=== PATIENT | male | born 1960 | race Caucasian/White ===

== ENCOUNTER → 2017-11-20 11:37 | Outpatient (CLI) | payer OTHER, MEDICARE, SELFPAY ==
--- NOTE | 2017-11-20 11:45 | XR_ITS ---
XR knee RT 4V HISTORY: ITS.REASON: Right knee pain and popping sensation ORDERING PHYSICIAN: Foster Deleon MD PATIENT AGE: 57 years COMPARISON: 01/05/2015 FINDINGS: Weightbearing views are performed. There is normal alignment. No fracture or dislocation evident. The joint spaces are well-preserved. There is mild lateral subluxation of the patella and there is increased density in the suprapatellar region consistent with knee joint effusion. IMPRESSION: Knee joint effusion with mild lateral subluxation of the patella
== END ==
PROVIDERS: PCP Family Medicine; Visit Provider Orthopaedic Surgery
DX: M25.561 Pain in right knee (principal)
CPT/HCPCS: 73564

== ENCOUNTER → 2018-04-22 13:53 | Outpatient (CLI) | payer OTHER, MEDICARE, SELFPAY ==
--- NOTE | 2018-04-22 13:59 | XR_ITS ---
XR knee LT 4V HISTORY: ITS.REASON: LEFT KNEE PAIN ORDERING PHYSICIAN: Foster Deleon MD PATIENT AGE: 58 years COMPARISON: Left knee 02/17/2009 FINDINGS: There is mild joint space narrowing medially. The tibial spines appear normal. The patella is intact and is no effusion. Is no fracture or loose body seen. The soft tissues are normal. IMPRESSION: Minor degenerative change involving medial joint space
== END ==
PROVIDERS: PCP Family Medicine; Visit Provider Orthopaedic Surgery
DX: M25.562 Pain in left knee (principal)
CPT/HCPCS: 73564

== ENCOUNTER → 2018-06-15 10:58 | Outpatient (CLI) | payer OTHER, MEDICARE, SELFPAY ==
--- NOTE | 2018-06-15 10:59 | FL_ITS ---
FL upper GI w air HISTORY: ITS.REASON: dysphasia ORDERING PHYSICIAN: Cj Quintana MD PATIENT AGE: 58 years Comparison: None Fluoroscopy time: Fluoroscopy time: 1 minute and 55 seconds FINDINGS: There is a small sliding hiatal hernia with nonconstricting Schatzki's ring. The remainder of the esophagus has an unremarkable appearance. The stomach and duodenum have an unremarkable appearance. No mass or ulcer is evident. IMPRESSION: Small sliding hiatal hernia with a nonconstricting chest injury otherwise negative
== END ==
PROVIDERS: Family Provider Family Medicine; PCP Family Medicine; Visit Provider Surgery
DX: R13.10 Dysphagia, unspecified (principal)
CPT/HCPCS: 74247

== ENCOUNTER → 2018-07-21 15:34 | Outpatient (CLI) | payer OTHER, MEDICARE, SELFPAY ==
--- NOTE | 2018-07-21 15:48 | XR_ITS ---
XR forearm LT 2V HISTORY: Posttraumatic pain ORDERING PHYSICIAN: Foster Deleon MD PATIENT AGE: 58 years COMPARISON: None FINDINGS: No obvious fracture, dislocation, lytic change or blastic change. Normal mineralization. Unremarkable soft tissues IMPRESSION: Negative forearm
--- NOTE | 2018-07-21 15:48 | XR_ITS ---
XR elbow LT min 3V HISTORY: Posttraumatic pain ORDERING PHYSICIAN: Foster Deleon MD PATIENT AGE: 58 years COMPARISON: None FINDINGS: No obvious fracture is apparent. Soft tissue swelling is present along the olecranon region. There is an anterior fat pad noted. These can sometimes be seen as normal variants. No displaced fat pad evident posteriorly. IMPRESSION: 1. No definite fracture. 2. Soft tissue swelling at the olecranon. 3. Anterior fat pad nonspecific. If pain persists, consider follow-up exam in 7-10 days
== END ==
PROVIDERS: PCP Family Medicine; Visit Provider Orthopaedic Surgery
DX: M25.522 Pain in left elbow (principal)
CPT/HCPCS: 73080; 73090

== ENCOUNTER → 2018-07-23 14:09 | Outpatient (CLI) | payer OTHER, MEDICARE, SELFPAY ==
--- NOTE | 2018-07-23 14:13 | XR_ITS ---
XR elbow LT min 3V HISTORY: ITS.REASON: LT ELBOW PAIN , INJURY ORDERING PHYSICIAN: SHANE Mckeon PATIENT AGE: 58 years COMPARISON: 07/21/2018 FINDINGS: Posterior soft tissue swelling at the olecranon has shown improvement. There does remain a small anterior fat pad which could be a variation of normal. No posterior fat pad evident. No obvious fracture apparent IMPRESSION: Decreasing soft tissue swelling posteriorly. No definite fracture apparent
== END ==
PROVIDERS: PCP Physician Assistant; Visit Provider Physician Assistant
DX: M25.522 Pain in left elbow (principal)
CPT/HCPCS: 73080

== ENCOUNTER → 2018-07-29 09:06 | Outpatient (CLI) | payer OTHER, MEDICARE, SELFPAY ==
--- NOTE | 2018-07-29 09:11 | XR_ITS ---
XR elbow LT min 3V HISTORY: Injury with pain follow-up ITS.REASON: FU , LT ELBOW PAIN ORDERING PHYSICIAN: SHANE Mckeon PATIENT AGE: 58 years COMPARISON: 07/23/2018 FINDINGS: The remaining soft tissue swelling at the olecranon suggesting olecranon bursitis. There is a small anterior fat pad once again noted which may be a variation of normal. No displaced posterior fat pad evident. No acute fracture or dislocation. IMPRESSION: As above, no acute fracture. Possible olecranon bursitis
== END ==
PROVIDERS: PCP Family Medicine; Visit Provider Physician Assistant
DX: M25.522 Pain in left elbow (principal)
CPT/HCPCS: 73080

== ENCOUNTER → 2018-09-01 08:22 | Outpatient (CLI) | payer OTHER, MEDICARE, SELFPAY ==
--- NOTE | 2018-09-01 08:26 | XR_ITS ---
XR knee LT 4V HISTORY: Stabbing pain in left knee ITS.REASON: weightbearing ORDERING PHYSICIAN: Natalie De Los Santos MD PATIENT AGE: 58 years COMPARISON: None FINDINGS: Weight-bearing views are performed. No fracture or dislocation. No lytic or blastic change. Normal mineralization. No significant arthritic changes evident. Minimal vascular calcification is present No other significant findings IMPRESSION: Negative Knee Atherosclerotic changes
== END ==
PROVIDERS: PCP Family Medicine; Visit Provider Orthopaedic Surgery
DX: M25.562 Pain in left knee (principal)
CPT/HCPCS: 73564

== ENCOUNTER → 2018-10-29 10:38 | Outpatient (CLI) | payer OTHER, MEDICARE, SELFPAY ==
--- NOTE | 2018-10-29 10:41 | XR_ITS ---
XR ankle wt bearing LT min 3V HISTORY: Pain following injury ITS.REASON: Ankle pain ORDERING PHYSICIAN: Natalie De Los Santos MD PATIENT AGE: 58 years Comparison: None FINDINGS: No fracture or dislocation. No lytic or blastic change. There is normal mineralization.. The joint spaces are well-preserved. No significant degenerative/arthritic changes. No erosive changes evident. There is soft tissue swelling overlying the lateral malleolus. IMPRESSION: Soft tissue swelling otherwise negative
--- NOTE | 2018-10-29 11:13 | XR_ITS ---
XR tibia fibula LT 2V CLINICAL INDICATION: Pain following injury ITS.REASON: Lt leg injury ORDERING PHYSICIAN: Natalie De Los Santos MD PATIENT AGE: 58 years Comparison: None FINDINGS: No fracture dislocation or other significant anomalies IMPRESSION: No acute finding
== END ==
PROVIDERS: PCP Family Medicine; Visit Provider Orthopaedic Surgery
DX: S99.912A Unspecified injury of left ankle, initial encounter (principal); M79.605 Pain in left leg
CPT/HCPCS: 73590; 73610

== ENCOUNTER 2018-11-10 08:30 | Outpatient (RCR) | payer OTHER, MEDICARE, SELFPAY ==
--- NOTE | 2018-11-02 08:48 | HMH.PTOPEV ---
PT Outpatient Evaluation Rehab PT Outpatient Evaluation Start: 10/29/18 13:59 Freq: Status: Active Protocol: Document 11/02/18 08:31 AUGUSTOEDWARDO (Rec: 11/02/18 08:47 AUGUSTOEDWARDO [id number]) Electronically Signed By Jason Tenorio, PT 11/02/18 08:31 Outpatient Therapy Subjective History Subjective History This is the initial Physical Therapy evaluation for Foster Mendiola. Pt is a 58 y/o male referred to PT s/p fall w/ hyperflexion ankle injury. Pt reprots he was on a ladder trying to clean a simpson covered in ice. Pt reports ladder began to slide and he started to fall. Pt reprots his ankle got got between rungs and caused an inversion w/ hyper dorsiflexion injury. Pt reports x-ray negative for fx. Chief Complaint Pain Stiff Swelling Symptom Type Ache Throb Symptoms Relieved By Rest/Positioning Ice Elevation Symptoms Aggravated By Standing Physical Activity Walking Prior Functional Limitations None Current Functional Limitations Standing Squatting Recreation Activity Walking Stairs Symptom Description Intermittent Level of pain today (0-10) 2 Pain scale - at its best (0-10) 0 Pain scale - at its worst (0-10) 7 Ankle/Foot Eval Gait Observation General Gait Pattern Observation Antalgic Gait Palpation Tenderness left Ankle/Foot Palpation Findings Tenderness Ankle/Foot Palpation Overall Comment TTP along Ant. T/C jt and DF tendons ATF TTP positive Deltoid ligament TTP positive ROM Ankle/Foot Dorsiflexion w/Knee Extended -5 from neutral Active Range Motion (degrees) Ankle/Foot Dorsiflexion w/Knee Extended 5 Passive Range (degrees) Special Tests Ankle Anterior Drawer Test Negative Left Ankle Eversion Test Negative Left Talar Tilt Test Negative Left Ankle Inversion (supination) Test Positive Left Foot/Heel Tap/Percussion Test Negative Left Outpatient Therapy Assessment Impairments Problems/Impairmments Palpation Tenderness
== END 2018-11-10 08:35 | disposition home or self-care (01) ==
LOC: PT 08:30
PROVIDERS: Visit Provider Orthopaedic Surgery
DX: S99.912A Unspecified injury of left ankle, initial encounter (principal)
CPT/HCPCS: 97110; 97163; 97760

== ENCOUNTER → 2019-03-26 10:52 | Outpatient (CLI) | payer OTHER, MEDICARE, SELFPAY ==
--- NOTE | 2019-03-26 11:05 | US_ITS ---
US Testicular Ordering Physician: SHANE Mckeon Patient Age: 58 years: Male HISTORY: ITS.REASON: EDIDIDYMITIS Right testicular pain. No recent injury or fever previous TECHNIQUE: COMPARISON :October 2013 testicle ultrasound FINDINGS Finding suggest bilateral chronic epididymitis with bilateral spermatocele. RIGHT HEMISCROTUM Right Testicle itself with Normal size. Normal color Doppler flow. No testicular mass lesion. No evidence of torsion. Right testicle: 2.4 x 1.6 cm x 3.3 cm. There is however a prominent enlarged epididymis head on right. The Head of right epididymis measures 1.8 x 1.45 cm. Also suggestion of a 9 mm x 5 mm spermatocele at the head of epididymis The body of epididymis is enlarged thickened and quite prominent as it wrapping along the margin of the right testicle. It has heterogeneous hyperechoic component adjacent to the testicle, with a a tubular debris-filled hypoechoic tubular structure possibly reflecting dilated vas deferens overlying this... This debris-filled tubular structure measuring generally 5 mm diameter throughout, possibly up to 5 x 8 mm diameter more superiorly, where it approaches the head of the epididymis. Again I believe these collection of findings findings reflect chronic epididymitis with sequela. Correlation required. Urology follow-up suggested LEFT HEMISCROTUM Left testicle 2.3 x 4.7 x 3.6 cm.. Left testicle appears normal with no testicular mass. Normal color Doppler flow, Enlarged head of epididymis on the left measures up to 1.5 x 1.4 cm. Spermatoceles are seen at the head of left epididymis. The largest bilobed from hydrocele spans nearly 1.6 x 0.7 cm. These same spermatoceles were seen on the previous 2013 testicular ultrasound Also note smaller spermatocele measuring less than 1 cm an at d head of epididymis is well Again we see a thickened enlarged body of epididymis, which wrapping along the left testicle. Most Hyperechoic heterogeneous thickened component epididymis adjacent to the testicle. Again with somewhat similar debris-filled tubular structure, probable reflecting dilated vas deferens more superficially overlying the epididymis and continuing superiorly on left. IMPRESSION:... 1. Findings compatible with bilateral Chronic Epididymitis.. With Bilateral spermatoceles The right epididymis head & body enlarged, and most prominent. The hyperechoic enlarged body epididymis wraps along the right testicle with what may be a dilated debris-filled vas deferens overlying The left epididymis head and body are enlarged but less pronounced vs right. . Multiple spermatoceles at head of left epididymis again noted. (Note The larger bilobed spermatocele measuring over measuring up 1.6 cm 10.7 cm was present on 2014 ultrasound) 2.... Both right and left Testicle themselves appear otherwise normal. Normal echogenicity. No mass. Normal color Doppler flow.
== END ==
PROVIDERS: PCP Physician Assistant; Visit Provider Physician Assistant
DX: N45.1 Epididymitis (principal)
CPT/HCPCS: 76870

== ENCOUNTER → 2019-06-21 06:40 | Outpatient (CLI) | payer OTHER, MEDICARE, SELFPAY ==
[2019-06-21 07:55] LABS: Basophils % 0.5 % (0.1-2.0); Eosinophils # 0.2 K/mm3 (0.0-0.4); Eosinophils % 2.8 % (0.1-12.0); Hematocrit 47.5 % (42.0-52.0); Hemoglobin 15.8 g/dL (14.1-18.0); Mean Corpuscular HGB Conc 33.1 g/dL (31.8-35.4); Mean Corpuscular Hemoglobin 32.1 pg (27.0-31.2); Mean Platelet Volume 7.2 fl (7.4-10.4); Monocytes # 0.5 K/mm3 (0.1-1.0); Monocytes % 8.5 % (1.7-9.3); Neutrophils # 3.4 K/mm3 (1.8-7.8); Neutrophils % 56.1 % (37.0-80.0); Platelet Count 248 K/mm3 (142-424); Red Cell Distribution Width 13.6 % (11.5-17.5); White Blood Count 6.1 K/mm3 (4.8-10.8)
[2019-06-21 10:54] LABS: Alanine Aminotransferase 47 U/L (12-78); Albumin Level 3.4 gm/dL (3.4-5.0); Albumin/Globulin Ratio 1.1 (1.1-1.8); Alkaline Phosphatase 47 U/L (46-116); Anion Gap 16.5 mEq/L (5-15); Aspartate Amino Transferase 27 U/L (15-37); Bilirubin,Total 0.3 mg/dL (0.2-1.0); Blood Urea Nitrogen 6 mg/dL (7-18); Calcium 8.7 mg/dL (8.5-10.1); Carbon Dioxide 25 mmol/L (21.0-32.0); Chloride 104 mmol/L (98-107); Chol/HDL Ratio 4.9 (1-3.5); Cholesterol 182 mg/dL (140-200); Creatinine,Serum 0.65 mg/dL (0.70-1.30); Estimated Glomerular Filt Rate 126 ml/min (>60); GFR (African American) 153 ML/MIN (>60); Globulin 3.2 gm/dl (1.3-3.2); Glucose 90 mg/dL (74-106); HDL Cholesterol 37 mg/dL (27-67); LDL Cholesterol 74 mg/dL (0-130); Potassium 4.5 mmoL/L (3.5-5.1); Sodium 141 mmol/L (136-145); Total Protein,Serum 6.6 gm/dL (6.4-8.2); Triglycerides 357 mg/dL (30-200); VLDL Cholesterol 71 mg/dL (0-40)
[2019-06-21 14:11] LABS: Hemoglobin A1C 5.6 % (0.0-7.0)
[2019-06-22 10:10] LABS: Vitamin B12 211 pg/mL (232-1245)
== END ==
PROVIDERS: PCP Family Medicine; Visit Provider Physician Assistant
DX: R20.2 Paresthesia of skin (principal); Z13.1 Encounter for screening for diabetes mellitus; Z13.220 Encounter for screening for lipoid disorders
CPT/HCPCS: 36415; 80053; 80061; 82607; 83036; 84443; 85025

== ENCOUNTER → 2019-07-08 10:17 | Outpatient (CLI) | payer OTHER, MEDICARE, SELFPAY ==
--- NOTE | 2019-07-08 10:28 | CT_ITS ---
PROCEDURE: CT HEAD/BRAIN WO CON CLINICAL INDICATION: INJURY OF HEAD COMPARISON: No exams were available for comparison TECHNIQUE: Axial images obtained with sagittal and coronal reformats. All CT scans at the facility use one or more dose reduction, viz: automated exposure control, ma/kV adjustment per patient size (including targeted exams where dose is matched to indication, i.e. head), or iterative reconstruction technique. FINDINGS: No midline shift, mass effect, intracranial hemorrhage, hydrocephalus, or extra-axial fluid collection is evident. The calvarium has an unremarkable appearance. No mastoid effusion. No sinus air-fluid level. IMPRESSION: No acute intracranial finding Dictated by: Kj Nance 07/08/2019 10:57 Electronically signed by Kj Nance in [place] 07/08/2019 10:57
== END ==
PROVIDERS: PCP Physician Assistant; Visit Provider Physician Assistant
DX: S09.90XD Unspecified injury of head, subsequent encounter (principal)
CPT/HCPCS: 70450

== ENCOUNTER → 2019-07-12 10:44 | Outpatient (CLI) | payer OTHER, MEDICARE, SELFPAY ==
--- NOTE | 2019-07-12 10:46 | MR_ITS ---
PROCEDURE: MR HEAD/BRAIN WO/W CON CLINICAL INDICATION: INJURY OF HEAD, SUBSEQUENT ENCOUNTER Dizziness, headache COMPARISON: CT HEAD/BRAIN WO CON from 07/08/2019 TECHNIQUE: Routine multiplanar multi echo sequences are performed without and with gadolinium enhancement. FINDINGS: No midline shift or mass effect is evident. No evidence of acute infarction. No enhancing lesions are evident. No acute intracranial hemorrhage. There are scattered periventricular and subcortical T2 white matter hyperintensities. These are nonspecific. The cerebellopontine angle, cerebellum, and brainstem are unremarkable. No mastoid effusion or sinus air-fluid level. A retention cyst is present in the floor the right maxillary sinus. The globes have an unremarkable appearance. The pituitary, optic chiasm and craniocervical junction has an unremarkable appearance. There is some focal thinning in the posterior aspect of the corpus callosum nonspecific IMPRESSION: 1. No acute intracranial findings. 2. Scattered periventricular and subcortical T2 white matter hyperintensities. These are nonspecific and may be due to ischemic gliotic change from microvascular disease. Migraine headache would be an additional consideration. Demyelinating process not totally excluded but felt to be less likely due to the appearance. Dictated by: Cali Shanks MD 07/14/2019 08:58 Electronically signed by Cali Shanks MD in [place] 07/14/2019 08:58
== END ==
PROVIDERS: PCP Physician Assistant; Visit Provider Physician Assistant
DX: S09.90XD Unspecified injury of head, subsequent encounter (principal)
CPT/HCPCS: 70553; A9576

== ENCOUNTER → 2019-10-26 08:28 | Outpatient (CLI) | payer OTHER, MEDICARE, SELFPAY ==
--- NOTE | 2019-10-26 08:36 | XR_ITS ---
PROCEDURE: XR KNEE LT 4V CLINICAL INDICATION: left knee pain He feels like pins and needles for 4 months COMPARISON: [id number] KNEE-4 OR 5 VIEWS-RT from 01/05/2015 [id number] XR knee RT 4V from 11/20/2017 [id number] XR knee LT 4V from 04/22/2018 [id number] XR knee LT 4V from 09/01/2018 FINDINGS: No fracture or dislocation. No lytic or blastic change. There is normal mineralization. The joint spaces are well-preserved. No significant degenerative/arthritic changes. No erosive changes evident. Other findings:Atherosclerotic vascular calcifications are incidentally noted. A tiny suprapatellar joint effusion is suggested. IMPRESSION: No acute findings. Suspect a small suprapatellar joint effusion. Atherosclerosis. Dictated by: Harris Aviles 10/26/2019 09:29 Electronically signed by Harris Aviles in [place] 10/26/2019 09:29
== END ==
PROVIDERS: PCP Physician Assistant; Visit Provider Orthopaedic Surgery
DX: M25.562 Pain in left knee (principal)
CPT/HCPCS: 73564

== ENCOUNTER → 2019-10-29 15:19 | Outpatient (CLI) | payer OTHER, MEDICARE, SELFPAY ==
--- NOTE | 2019-10-29 15:19 | MR_ITS ---
PROCEDURE: MR KNEE LT WO CON CLINICAL INDICATION: evaluate for meniscal tear COMPARISON: No exams were available for comparison TECHNIQUE: Routine multiplanar multisequence exam was performed. FINDINGS: There is normal bone marrow signal. There is grade 2 signal in the posterior horn of the medial meniscus compatible with degeneration. There is no convincing evidence of a meniscal tear. A small amount of fluid in the joint space is felt to be within physiological normal limits. Anterior and posterior cruciate ligaments, and patellar tendon, and medial and lateral collateral ligament complexes appear intact. There is some signal abnormality within the caudad fibers of the quadriceps tendon over an approximately 2.6 centimeter segment extending from the patellar attachment site consistent with tendinosis and/or partial substance tearing. There is associated signal abnormality in the adjacent soft tissues posterior to the tendon and superior to the patella consistent with peritendinitis. There is no complete disruption of the quadriceps tendon. IMPRESSION: Tendinosis/partial substance tearing of quadriceps tendon with associated inflammation/edema of the adjacent soft tissues. No other evidence of significant internal derangement and no convincing evidence of meniscal tear. Dictated by: Harris Aviles 10/30/2019 10:53 Electronically signed by Harris Aviles in [place] 10/30/2019 10:53
== END ==
PROVIDERS: PCP Physician Assistant; Visit Provider Orthopaedic Surgery
DX: M25.562 Pain in left knee (principal)
CPT/HCPCS: 73721

== ENCOUNTER → 2020-01-19 09:27 | Outpatient (CLI) | payer OTHER, MEDICARE, SELFPAY ==
--- NOTE | 2020-01-19 09:33 | XR_ITS ---
PROCEDURE: XR MULTIPLE SPINE 6+V CLINICAL INDICATION: MIDLINE BACK PAIN Posttraumatic pain, mid and low back pain COMPARISON: No exams were available for comparison FINDINGS: Thoracic spine: Three views: Minimal upper thoracic curvature convex right with mild multilevel degenerative disc disease and endplate hypertrophic change. No acute fracture. Lumbar spine: Five views, no acute fracture or dislocation. There is degenerative disc disease at L5-S1, T12-L1, L1-L2 small anterior osteophytes are present at multiple levels and there is a small area of sclerosis along the superior endplate L4 on the right and at the inferior aspect of the L4 vertebral body. IMPRESSION: 1. No acute fracture. 2. Degenerative changes as described above Dictated by: Cali Shanks MD 01/19/2020 11:08 Electronically signed by Cali Shanks MD in [place] 01/19/2020 11:08
== END ==
PROVIDERS: PCP Physician Assistant; Visit Provider Physician Assistant
DX: M54.6 Pain in thoracic spine (principal); M54.5 Low back pain
CPT/HCPCS: 72084

== ENCOUNTER → 2020-03-16 15:07 | Outpatient (CLI) | payer OTHER, MEDICARE, SELFPAY ==
--- NOTE | 2020-03-16 15:13 | XR_ITS ---
PROCEDURE: XR WRIST RT MIN 3V CLINICAL INDICATION: Pain and swelling COMPARISON: No exams were available for comparison FINDINGS: No fracture or dislocation. No lytic or blastic change. There is normal mineralization. The joint spaces are well-preserved. No significant degenerative/arthritic changes. No erosive changes evident. Other findings:None. IMPRESSION: No acute findings. Dictated by: Cali Shanks MD 03/16/2020 15:36 Electronically signed by Cali Shanks MD in [place] 03/16/2020 15:36
== END ==
PROVIDERS: PCP Physician Assistant; Visit Provider Physician Assistant
DX: M25.431 Effusion, right wrist (principal); M79.89 Other specified soft tissue disorders
CPT/HCPCS: 73110

== ENCOUNTER → 2020-04-12 10:10 | Outpatient (CLI) | payer OTHER, MEDICARE, SELFPAY ==
--- NOTE | 2020-04-12 10:23 | XR_ITS ---
PROCEDURE: XR KNEE RT 3V CLINICAL INDICATION: ACUTE PAIN OF R KNEE COMPARISON: No exams were available for comparison FINDINGS: No fracture or dislocation. No lytic or blastic change. There is normal mineralization. The joint spaces are well-preserved. No significant degenerative/arthritic changes. No erosive changes evident. Other findings:There is generalized vascular calcification. Increased soft tissue density is present in the suprapatellar region consistent with knee joint effusion IMPRESSION: Knee joint effusion Dictated by: Cali Shanks MD 04/12/2020 14:48 Electronically signed by Cali Shanks MD in [place] 04/12/2020 14:48
== END ==
PROVIDERS: PCP Physician Assistant; Visit Provider Physician Assistant
DX: M25.561 Pain in right knee (principal)
CPT/HCPCS: 73562

== ENCOUNTER → 2020-04-21 09:59 | Outpatient (CLI) | payer OTHER, MEDICARE, SELFPAY ==
--- NOTE | 2020-04-21 10:01 | XR_ITS ---
PROCEDURE: XR KNEE RT 4V CLINICAL INDICATION: Rt knee pain COMPARISON: XR KNEE RT 3V from 04/12/2020 FINDINGS: No fracture or dislocation. No lytic or blastic change. There is normal mineralization. The joint spaces are well-preserved. No significant degenerative/arthritic changes. There is minor spurring of the superior border of the patella. No erosive changes evident. There has been interval decrease in size of the small effusion within the suprapatellar bursa. Other findings:None. IMPRESSION: Resolving knee effusion, no acute fracture seen Dictated by: Dr. Abhi Kendrick MD 04/21/2020 10:[address] Abhi Kendrick MD in [place] 04/21/2020 10:32
[2020-04-22 13:05] LABS: Covid-19 Nasal PCR Sendout Lex Not Detected
== END ==
PROVIDERS: PCP Physician Assistant; Visit Provider Orthopaedic Surgery
DX: Z03.818 Encounter for observation for suspected exposure to other biological agents ruled out (principal); Z11.59 Encounter for screening for other viral diseases; M25.561 Pain in right knee
CPT/HCPCS: 73564; U0004

== ENCOUNTER → 2020-05-01 07:49 | Outpatient (CLI) | payer OTHER, MEDICARE, SELFPAY ==
--- NOTE | 2020-05-01 08:02 | MR_ITS ---
PROCEDURE: MR KNEE RT WO CON CLINICAL INDICATION: knee pain Knee pain and swelling, instability COMPARISON: 04/21/2020 TECHNIQUE: Routine multiplanar multi echo sequences are performed without gadolinium enhancement. FINDINGS: The cruciate ligaments, collateral ligaments, the elbow tendon, and quadriceps tendon appear intact. Suspect tendinopathy/tendinosis of the distal aspect of the quadriceps tendon. No obvious meniscal tear. There is small knee joint effusion. No bone bruise or fracture. IMPRESSION: Small knee joint effusion otherwise negative Dictated by: Cali Shanks MD 05/03/2020 07:53 Electronically signed by Cali Shanks MD in [place] 05/03/2020 07:53
== END ==
PROVIDERS: PCP Physician Assistant; Visit Provider Orthopaedic Surgery
DX: M25.569 Pain in unspecified knee (principal)
CPT/HCPCS: 73721

== ENCOUNTER → 2020-07-19 08:21 | Outpatient (CLI) | payer OTHER, MEDICARE, SELFPAY ==
--- NOTE | 2020-07-19 08:29 | XR_ITS ---
PROCEDURE: XR HAND RT MIN 3V CLINICAL INDICATION: right hand pain COMPARISON: No exams were available for comparison FINDINGS: No obvious fracture or dislocation. There is a small area of exostosis involving the proximal and ulnar aspect of the proximal phalanx of the 3rd finger. Lucency is present along the cortical margin of the distal and radial aspect of the middle phalanx of the 3rd finger raising the suspicion of an underlying erosion. IMPRESSION: 1. Questionable erosive change along the distal and radial aspect of the middle phalanx of the 3rd digit. Finger films may confirm. 2. Minimal exostosis along the proximal and ulnar aspect of the proximal phalanx of the 3rd digit Dictated by: Cali Shanks MD 07/19/2020 08:51 Cali Shanks MD in [place] 07/19/2020 08:51
== END ==
PROVIDERS: PCP Family Medicine; Visit Provider Orthopaedic Surgery
DX: M79.641 Pain in right hand (principal)
CPT/HCPCS: 73130

== ENCOUNTER → 2021-01-22 09:53 | Outpatient (CLI) | payer OTHER, MEDICARE, SELFPAY ==
[2021-01-22 11:10] LABS: Basophils # 0.1 K/mm3 (0-0.2); Basophils % 0.7 % (0.1-2.0); Eosinophils # 0.1 K/mm3 (0.0-0.4); Eosinophils % 1.7 % (0.1-12.0); Hematocrit 46.5 % (42.0-52.0); Hemoglobin 16.3 g/dL (14.1-18.0); Lymphocytes # 2.1 K/mm3 (0.7-4.5); Lymphocytes % 25.3 % (10-50); Mean Corpuscular HGB Conc 35.1 g/dL (31.8-35.4); Mean Corpuscular Hemoglobin 32.8 pg (27.0-31.2); Mean Corpuscular Volume 93.6 fl (80-94); Mean Platelet Volume 8.5 fl (7.4-10.4); Monocytes # 0.5 K/mm3 (0.1-1.0); Monocytes % 6.1 % (1.7-9.3); Neutrophils # 5.5 K/mm3 (1.8-7.8); Neutrophils % 66.3 % (37.0-80.0); Platelet Count 234 K/mm3 (142-424); Red Blood Count 4.97 M/mm3 (4.60-6.20); Red Cell Distribution Width 13.6 % (11.5-17.5); White Blood Count 8.2 K/mm3 (4.8-10.8)
[2021-01-22 11:51] LABS: Alanine Aminotransferase 24 U/L (12-78); Albumin Level 4.4 g/dl (3.5-5.0); Albumin/Globulin Ratio 1.6 (1.1-1.8); Alkaline Phosphatase 67 U/L (38-126); Anion Gap 15.9 mEq/L (5-15); Aspartate Amino Transferase 28 U/L (17-59); Bilirubin,Total 0.6 mg/dl (0.2-1.3); Blood Urea Nitrogen 9 mg/dl (9-20); Calcium 9.4 mg/dl (8.4-10.2); Carbon Dioxide 21 mmol/L (22.0-30.0); Chloride 105 mmol/L (98-107); Chol/HDL Ratio 4.4 (1-3.5); Cholesterol 170 mg/dl (140-200); Estimated Glomerular Filt Rate 115 ml/min (>60); GFR (African American) 140 ML/MIN (>60); Globulin 2.7 g/dL (1.3-3.2); Glucose 100 mg/dl (74-100); HDL Cholesterol 39 mg/dl (40-60); Potassium 4.9 mmoL/L (3.5-5.1); Sodium 137 mmol/L (136-145); Total Protein,Serum 7.1 g/dl (6.3-8.2); Triglycerides 328 mg/dl (30-150); Uric Acid 10.5 mg/dl (3.5-8.5); VLDL Cholesterol 66 mg/dL (0-40)
[2021-01-22 12:03] LABS: Direct LDL Cholesterol 83.39 mg/dL (100-129)
[2021-01-22 12:08] LABS: Free T4 (Free Thyroxine) 1.16 ng/dl (0.78-2.19)
[2021-01-22 12:22] LABS: Thyroid Stimulating Hormone 1.07 uIU/mL (0.465-4.68)
[2021-01-22 12:42] LABS: Vitamin B12 201 pg/mL (239-931)
== END ==
PROVIDERS: Visit Provider Physician Assistant
DX: R42 Dizziness and giddiness (principal); R51.9 Headache, unspecified; E79.0 Hyperuricemia without signs of inflammatory arthritis and tophaceous disease; E53.8 Deficiency of other specified B group vitamins; E78.5 Hyperlipidemia, unspecified
CPT/HCPCS: 36415; 80053; 80061; 82607; 84439; 84443; 84550; 85025

== ENCOUNTER → 2021-02-05 10:36 | Outpatient (CLI) | payer OTHER, MEDICARE, SELFPAY ==
[2021-02-05 22:04] LABS: Hemoglobin A1C 5.3 % (4.0-6.0)
[2021-02-11 09:08] LABS: Vitamin B1 156.5 nmol/L (66.5-200.0)
== END ==
PROVIDERS: Visit Provider Nurse Practitioner Family
DX: E53.8 Deficiency of other specified B group vitamins (principal); R20.0 Anesthesia of skin; R20.2 Paresthesia of skin; R73.9 Hyperglycemia, unspecified; Z72.89 Other problems related to lifestyle
CPT/HCPCS: 36415; 82746; 83036; 84425

== ENCOUNTER → 2021-02-06 12:04 | Outpatient (CLI) | payer OTHER, MEDICARE, SELFPAY | PROVIDERS: PCP Family Medicine; Visit Provider Nurse Practitioner Family | DX: G44.321 Chronic post-traumatic headache, intractable (principal); Z72.0 Tobacco use | CPT/HCPCS: 94762 ==

== ENCOUNTER → 2021-04-04 12:26 | Outpatient (CLI) | payer OTHER, MEDICARE, SELFPAY ==
--- NOTE | 2021-04-04 12:26 | MR_ITS ---
PROCEDURE: MR HEAD/BRAIN WO CON CLINICAL INDICATION: eval for mass, lesion, [employer]ED[employer] abnormality Migraine headache. Dizziness. COMPARISON: MR MR HEAD/BRAIN WO/W CON from 07/12/2019 TECHNIQUE: Routine multiplanar multi echo sequences are performed without gadolinium enhancement. FINDINGS: No midline shift, mass effect, intracranial hemorrhage, or hydrocephalus is evident. The cerebellopontine angles, cerebellum, brainstem and mid brain have an unremarkable appearance. There is scattered nonspecific T2 white matter hyperintensities. These have slightly progressed in number and intensity. No involvement of the corpus callosum or temporal lobes. No midbrain or brainstem or cerebellar involvement. The pituitary, optic chiasm, corpus callosum, and craniocervical junction has an unremarkable appearance. No mastoid effusion or sinus air-fluid level. There is a small retention cyst in the right maxillary sinus at 14 mm. IMPRESSION: Scattered T2 white matter hyperintensities nonspecific slightly increased in number and intensity. Most common etiology would be ischemic gliotic change from microvascular disease. Migraine headache also included in the differential diagnosis. Demyelinating process felt to be less likely due to the distribution and pattern Otherwise negative Dictated by: Cali Shanks MD 04/05/2021 08:25 Cali Shanks MD in [place] 04/05/2021 08:25
--- NOTE | 2021-04-04 13:45 | CA_ITS ---
APPROVED REPORT Photo Machine Operator: TOÑO Laterality: Bilateral Study Quality: Good Indications: eval for carotid dissection Risk Factors Smoking headaches, weakness, dizziness x 4-5 months Doppler Spectral Velocity Analysis ECA (R) 124.20/22.30 cm/s ECA (L) 107.00/20.20 cm/s dICA (R) 61.00/23.00 cm/s dICA (L) 98.20/36.60 cm/s Ramesh (R) 38.50/14.10 cm/s Ramesh (L) 51.30/20.90 cm/s pICA (R) 54.60/16.70 cm/s pICA (L) 39.60/11.80 cm/s dCCA (R) 55.20/17.30 cm/s dCCA (L) 41.70/11.80 cm/s pCCA (R) 70.60/12.20 cm/s pCCA (L) 92.50/14.10 cm/s Vert (R) 31.00/8.60 cm/s Vert (L) 44.90/14.10 cm/s ICA/CCA 1.10 ICA/CCA 2.30 Findings Duplex evaluation demonstrates stenosis of the right proximal internal carotid artery in the range of 20-49% with PSV <140 cm/sec, EDV <100 cm/sec, and IC/CC Ratio <4.0. Duplex evaluation demonstrates stenosis of the left proximal internal carotid artery in the range of 20-49% with PSV <140 cm/sec, EDV <100 cm/sec, and IC/CC Ratio <4.0. Duplex evaluation demonstrates antegrade flow of the bilateral Vertebral Arteries. B-Mode Ultrasound demonstrates mild intraluminal plaque in the left common Carotid Artery. Conclusion Duplex evaluation demonstrates stenosis of the right proximal internal carotid artery in the range of 20-49% with PSV <140 cm/sec, EDV <100 cm/sec, and IC/CC Ratio <4.0. Duplex evaluation demonstrates stenosis of the left proximal internal carotid artery in the range of 20-49% with PSV <140 cm/sec, EDV <100 cm/sec, and IC/CC Ratio <4.0. Duplex evaluation demonstrates antegrade flow of the bilateral Vertebral Arteries. B-Mode Ultrasound demonstrates mild intraluminal plaque in the left common Carotid Artery. Electronically signed by : Cali Shanks MD 04/04/2021 16:52:25
--- NOTE | 2021-04-04 14:24 | XR_ITS ---
PROCEDURE: XR CERVICAL SPINE W FLEX/EXT CLINICAL INDICATION: neck pain, N/T COMPARISON: No exams were available for comparison FINDINGS: No fracture or dislocation. No lytic or blastic change. There is normal mineralization. Normal alignment. Mild degenerative disc disease C4-C5 C5-C6 and C6-C7. There is mild facet and uncovertebral hypertrophy with foraminal narrowing on the right the at C3-C4 C4-C5 and C5-C6. Facet hypertrophic changes are present from C3-C6. Incidental carotid artery calcifications noted bilaterally. Flexion and extension views show no abnormal subluxation. Other findings:None. IMPRESSION: Degenerative changes of the cervical spine as described above. No abnormal subluxation in flexion or extension Dictated by: Cali Shanks MD 04/04/2021 17:14 Cali Shanks MD in [place] 04/04/2021 17:14
--- NOTE | 2021-04-04 14:24 | XR_ITS ---
PROCEDURE: XR CHEST 2V CLINICAL HISTORY: Smoker, COPD COMPARISON: CR CXR CHEST(2 VIEWS-NOT PORTABLE) from 08/02/2016 CR CXR2V XR chest 2V from 06/01/2018 FINDINGS: The cardiomediastinal silhouette and pulmonary vascularity are within normal limits. The lungs are clear without infiltrates, suspicious nodules, or pleural effusions. No acute bony abnormalities. IMPRESSION: No acute findings. Dictated by: Cali Shanks MD 04/04/2021 17:13 Cali Shanks MD in [place] 04/04/2021 17:13
== END ==
PROVIDERS: PCP Family Medicine; Visit Provider Specialist
DX: M54.2 Cervicalgia (principal); R20.0 Anesthesia of skin; R20.2 Paresthesia of skin; R51.9 Headache, unspecified; Z72.0 Tobacco use; R05 Cough
CPT/HCPCS: 70551; 71046; 72052; 93880

== ENCOUNTER → 2021-06-21 09:57 | Outpatient (CLI) | payer OTHER, MEDICARE, SELFPAY ==
[2021-06-21 11:21] LABS: Chol/HDL Ratio 4.6 (1-3.5); Cholesterol 185 mg/dl (140-200); HDL Cholesterol 40 mg/dl (40-60); Triglycerides 322 mg/dl (30-150); VLDL Cholesterol 64 mg/dL (0-40)
[2021-06-21 11:32] LABS: Direct LDL Cholesterol 106.59 mg/dL (100-129)
== END ==
PROVIDERS: Visit Provider Specialist
DX: R51.9 Headache, unspecified (principal); E78.5 Hyperlipidemia, unspecified
CPT/HCPCS: 36415; 80061

== ENCOUNTER 2021-07-17 19:00 | Emergency (ER) | payer MEDICARE, SELFPAY ==
[2021-07-17 19:02] VITALS: BP 149/77; PULSE 98; RESP 19; TEMP 37; O2SAT 98; BMI 30.3
--- NOTE | 2021-07-17 20:23 | HMH.EDUTC ---
[facility] [place] Disposition Clinical Impression: Olecranon bursitis of left elbow Cat bite of right hand with infection Qualifiers: Encounter type: initial encounter Qualified Code(s): S61.451A - Open bite of right hand, initial encounter; L08.9 - Local infection of the skin and subcutaneous tissue, unspecified; W55.01XA - Bitten by cat, initial encounter Disposition: Home, Self-Care Condition on Discharge: Good Instructions: DI for Bursitis, DI for Elbow Bursitis, How To Perform RICE (Rest, Ice, Compress, Elevate), DI for Cat Bite Additional Instructions: Take medication as prescribed Follow up with Family Doctor if no improvement or any worsening of symptoms *RICE, Rest the elbow, Ice 15-20 minutes 3-4 times daily, Compress- wear the neville wrap as discussed as much as possible to help reduce swelling and pain, Elevate the extremity when at rest *Over the counter Ibuprofen every 6-8 hours as needed for pain an inflammation if you are able to take it. If need something more can take Tylenol in between doses of Ibuprofen to help Immediately follow up with your family doctor for new or worsening of symptoms, or no noticeable improvement over the next 3-5 days Return if needed Prescriptions: Amoxicillin/Potassium Clav [Augmentin 875-125 Tablet] 1 tab PO Q12H 10 Days #20 tab Transmission Status: Pending to [facility] Referrals: Shubham Nettles MD [Primary Care Provider] - As needed Time of Disposition: 20:39 Medical Decision Making - Constantin Inquiry Pt receiving controlled substance: No Constantin was queried for this patient: No Vital Signs: 07/17/21 19:02 Temperature 98.6 F Temperature Source Oral Pulse Rate [Left Radial] 98 H Respiratory Rate 19 Blood Pressure [Right Arm] 149/77 H Blood Pressure Mean [Right Arm] 101 Blood Pressure Source [Right Arm] Automatic Cuff Blood Pressure Position [Right Arm] Sitting 02 Sat by Pulse Oximetry 98 Oxygen Delivery Method Room Air [facility] [place] HPI - General Stated complaint: hands and elbows swollen Time Seen by Provider: 07/17/21 20:26 Mode of Arrival: Ambulatory Source of Information: Patient Limitations: No Limitations Description of Symptoms (Recalled from Triage Doc. by RN): swelling in both elbows and right hand for 2 days HEENT Symptoms (Recalled from RN notes): No Resp Symptoms (Recalled from RN notes): No Skin Symptoms (Recalled from RN notes): No MS Symptoms (Recalled from RN notes): No Functional Status (Recalled from RN notes): na - History of Present Illness Provider Complaint: Patient statse that he has been having some redness in his elbows on and off and sometimes he gets gout but he wanted to have his hand looked at States he was bitten by his cat about a week ago and now he is having swelling, redness, and warmth States that it is more swollen and red today so family wanted him to come in and get checked Denies fever - Related Data Home Medications Medication Instructions Recorded Confirmed Diclofenac Sodium [Voltaren 100gm 4 g TOPICAL QID 06/15/18 06/21/21 Topical Gel] Tiotropium Br/Olodaterol HCl 4 gm IH DAILY 06/15/18 06/21/21 [Stiolto Respimat Inhal [place]] vitamin B complex 1 tab PO DAILY 05/11/19 06/21/21 allopurinol 300 mg tablet 300 mg PO DAILY tab 02/05/21 06/21/21 colchicine 0.6 mg tablet 0.6 mg PO DAILY PRN tab 03/12/21 06/21/21 indomethacin 25 mg capsule 50 mg PO ONCE PRN cap 03/12/21 06/21/21 venlafaxine 75 mg capsule,extended 150 mg PO DAILY cap 04/16/21 06/21/21 release 24 hr Previous Rx's Medication Instructions Recorded gabapentin 300 mg capsule 300 mg PO HS #30 cap 06/21/21 galcanezumab-gnlm 120 mg/mL 120 mg SQ QMONTH 30 Days #1 ml 06/21/21 subcutaneous pen injector thiamine HCl (vitamin B1) 250 mg 250 mg PO DAILY #30 tab 06/21/21 tablet ubrogepant 100 mg tablet 100 mg PO ONCE PRN #10 tab 06/21/21 Amoxicillin/Potassium Clav 1 tab PO Q12H 10 Days #20 tab 07/17/21 [Augmentin 875-125 Tablet] Allergies
[2021-07-17 20:57] VITALS: BP 149/77; PULSE 98; RESP 19; TEMP 37; O2SAT 97
== END 2021-07-17 20:58 | disposition home or self-care (01) ==
PROVIDERS: Emergency Provider Nurse Practitioner; PCP Family Medicine
DX: S61.451A Open bite of right hand, initial encounter (principal); M70.22 Olecranon bursitis, left elbow; W55.01XA Bitten by cat, initial encounter; Y92.9 Unspecified place or not applicable; Z23 Encounter for immunization; J45.909 Unspecified asthma, uncomplicated; F17.210 Nicotine dependence, cigarettes, uncomplicated; F33.1 Major depressive disorder, recurrent, moderate
CPT/HCPCS: G0463; 90471; 90715; 99202

== ENCOUNTER → 2021-08-07 12:21 | Outpatient (CLI) | payer MEDICARE, SELFPAY ==
--- NOTE | 2021-08-07 12:24 | XR_ITS ---
PROCEDURE: XR ELBOW LT MIN 3V CLINICAL INDICATION: left elbow pain COMPARISON: CR ELBOWCMLT XR elbow LT min 3V from 07/21/2018 CR ELBOWCMLT XR elbow LT min 3V from 07/23/2018 DX ELBOWCMLT XR elbow LT min 3V from 07/29/2018 CR XR ELBOW RT MIN 3V from 08/07/2021 FINDINGS: No fracture or dislocation. No lytic or blastic change. There is normal mineralization. The joint spaces are well-preserved. No significant degenerative/arthritic changes. No erosive changes evident. Small enthesophyte with mild soft tissue swelling at the olecranon. At the olecranon IMPRESSION: Olecranon bursitis otherwise negative Dictated by: Cali Shanks MD 08/07/2021 17:43 Cali Shanks MD in [place] 08/07/2021 17:43
--- NOTE | 2021-08-07 12:24 | XR_ITS ---
PROCEDURE: XR ELBOW RT MIN 3V CLINICAL INDICATION: right elbow pain COMPARISON: CR ELBOWCMLT XR elbow LT min 3V from 07/21/2018 CR ELBOWCMLT XR elbow LT min 3V from 07/23/2018 DX ELBOWCMLT XR elbow LT min 3V from 07/29/2018 FINDINGS: No fracture or dislocation. No lytic or blastic change. There is normal mineralization. The joint spaces are well-preserved. No significant degenerative/arthritic changes. No erosive changes evident. There is a small calcific density along the medial aspect the medial epicondyle which could be due to an old ligamentous injury. Faint calcific density is present between the radial head and the trochlea. There is a small enthesophyte at the olecranon. IMPRESSION: Chronic changes, no acute finding Dictated by: Cali Shanks MD 08/07/2021 17:42 Cali Shanks MD in [place] 08/07/2021 17:42
== END ==
PROVIDERS: PCP Family Medicine; Visit Provider Orthopaedic Surgery
DX: M25.522 Pain in left elbow (principal); M25.521 Pain in right elbow
CPT/HCPCS: 73080

== ENCOUNTER 2022-07-29 13:29 | Emergency (ER) | payer MEDICARE, SELFPAY ==
[2022-07-29 13:30] VITALS: BP 131/80; PULSE 91; RESP 18; TEMP 36.9; O2SAT 97; BMI 31.6
--- NOTE | 2022-07-29 15:01 | EXP.UTC ---
Discharge Plan Disposition Patient Disposition: Home, Self-Care Condition: Good Prescriptions Prescriptions: New cefdinir 300 mg capsule 300 mg PO BID Qty: 20 0RF prednisone 20 mg tablet 20 mg PO BID Qty: 10 0RF benzonatate 100 mg capsule 100 mg PO TID PRN (Reason: cough) Qty: 30 0RF No Action vitamin B complex [B Complex-Vitamin B12] Tablet 1 tab PO DAILY indomethacin 25 mg capsule 50 mg PO ONCE PRN (Reason: Arthritis) allopurinol 300 mg tablet 300 mg PO DAILY Label Comments: TAKE ONE TABLET BY MOUTH EVERY DAY venlafaxine 75 mg capsule,extended release 24hr 150 mg PO DAILY Ubrelvy 100 mg tablet 100 mg PO ONCE PRN (Reason: headache) Qty: 10 5RF Rx Instructions: take one tab (100mg) at onset of headache. May repeat 100mg (1 tab) after 2 hours if pain persists. Max dose 200mg in 24 hours or 4 tab per week. thiamine HCl (vitamin B1) 250 mg tablet 250 mg PO DAILY Qty: 30 11RF gabapentin 300 mg capsule 300 mg PO HS Qty: 30 5RF Emgality Pen 120 mg/mL pen injector 120 mg SQ QMONTH 30 Days Qty: 1 11RF tiotropium-olodaterol 4 GM mist 4 gm IH DAILY diclofenac sodium 100 GM gel 4 g topical QID Rx Instructions: apply to single knee, ankle, foot; gently massage into area; for foot includes sole/toes/top of foot colchicine 0.6 mg tablet 0.6 mg PO DAILY PRN (Reason: gout) Referrals Follow up/Referrals: Shubham Nettles MD [Primary Care Provider] - See instructions Activity Restrictions/Add. Instructions Additional Instructions/Restrictions: *Monitor Temp, Over the counter Motrin or Tylenol as directed/as needed Tylenol every 4 hours and Motrin every 6 hours (as long as your family doctor has told you that you can take it) for fever or pain. and straight to ER if unable to lower temp less than 101.0 after medication given *Warm salt water gargles may help to soothe the throat *Throat Lozenges? *Warm fluids like tea with honey may help to soothe the throat? *Sleep elevated *Humidifier/Vaporizer Take medication as prescribed Follow up IMMEDIATELY for new or worsening symptoms or no Noticeable improvement over the next 48-72 hours. 911 for difficulty breathing or swallowing You were tested for today for COVID19 your test result should be back in the next 24-48 hours, you may check your results on the [facility] My Health Portal Clinical Impressions Clinical Impression: Sinusitis, Bronchitis Instructions Patient Instructions: DI for Sinusitis, Sinusitis, Acute Bronchitis Discharge ED Provider: Estee Cooper [facility] [place] General Stated complaint: Drainage, cough Mode of Arrival: Ambulatory Source of Information: Patient Limitations: No Limitations Time Seen by Provider: 07/29/22 15:01 Description of Symptoms (Recalled from Triage Doc. by RN): cough runny nose body aches HEENT Symptoms (Recalled from RN notes): Yes Resp Symptoms (Recalled from RN notes): Yes Skin Symptoms (Recalled from RN notes): No MS Symptoms (Recalled from RN notes): No Functional Status (Recalled from RN notes): n/a History of Present Illness Provider Complaint: Patient state that he has been sick about 2 weeks States that he has been having sinus pain and pressure along with drainage in the back of his throat States that he feels like it is trying to move into his chest States that for the last couple of days he has had cough but not coughing anything up so today when he was still not feeling well he came in to get checked Related Data Home Medications Medication Instructions Recorded Confirmed diclofenac sodium 1 % topical gel 4 g topical QID Arthritis 06/15/18 06/21/21 tiotropium 2.5 mcg-olodaterol 2.5 4 gm IH DAILY Asthma 06/15/18 06/21/21 mcg/actuation mist for inhalation vitamin B complex (B 1 tab PO DAILY Supplement 05/11/19 06/21/21 Complex-Vitamin B12 tablet) allopurinol 300 mg tablet 300 mg PO DAILY
[2022-07-29 15:32] VITALS: BP 131/80; PULSE 91; RESP 18; TEMP 36.9; O2SAT 97
== END 2022-07-29 15:33 | disposition home or self-care (01) ==
PROVIDERS: Emergency Provider Nurse Practitioner; PCP Family Medicine
DX: J02.9 Acute pharyngitis, unspecified (principal); R05.9 Cough, unspecified; Z20.822 Contact with and (suspected) exposure to COVID-19; R51.9 Headache, unspecified; M19.90 Unspecified osteoarthritis, unspecified site; R09.89 Other specified symptoms and signs involving the circulatory and respiratory systems; F17.210 Nicotine dependence, cigarettes, uncomplicated; Z79.52 Long term (current) use of systemic steroids; Z88.5 Allergy status to narcotic agent; Z88.6 Allergy status to analgesic agent; Z91.018 Allergy to other foods
CPT/HCPCS: 99213; C9803; G0463; U0003; U0005

== ENCOUNTER → 2022-09-13 10:07 | Outpatient (CLI) | payer MEDICARE, SELFPAY ==
--- NOTE | 2022-09-13 10:17 | XR_ITS ---
FINAL REPORT CLINICAL HISTORY: rt foot pain FINDINGS: RIGHT FOOT Three views of the right foot demonstrate no acute fracture or dislocation. There are mild degenerative changes which are worse at the 1st MTP joint. The soft tissues are unremarkable. IMPRESSION: Mild degenerative change, worse at the 1st MTP joint. Reviewed, Interpreted and Dictated by Cj Smith III, MD Transcribed by Neelam Jimenez Authenticated and [facility]
--- NOTE | 2022-09-13 10:17 | XR_ITS ---
FINAL REPORT CLINICAL HISTORY: lt foot pain FINDINGS: LEFT FOOT Three views of the left foot demonstrate no acute fracture or dislocation. There are mild degenerative changes which are worse at the 1st MTP joint. The soft tissues are unremarkable. IMPRESSION: Mild degenerative change, worse at the 1st MTP joint. Reviewed, Interpreted and Dictated by Cj Smith III, MD Transcribed by Neelam Jimenez Authenticated and [facility]
== END ==
LOC: RAD 10:12
PROVIDERS: PCP Family Medicine; Visit Provider Orthopaedic Surgery
DX: M79.672 Pain in left foot (principal); M79.671 Pain in right foot
CPT/HCPCS: 73630

== ENCOUNTER → 2022-12-11 07:53 | Outpatient (CLI) | payer BC, MEDICARE, SELFPAY ==
--- NOTE | 2022-12-11 07:57 | CT_ITS ---
FINAL REPORT CLINICAL HISTORY: H/O TOBACCO USE, currently smokes 1 pk per day 15 yrs, no cancer hx FINDINGS: Low-Dose Chest CT Axial images were obtained from the lung apex to the mid abdomen by computed tomography. Low-dose protocol was utilized. CTDI vol (mGy): 2.90 DLP (mGy-cm): 111.51 There is no axillary adenopathy. There is no hilar or mediastinal adenopathy. The heart is proper size. There is severe left coronary artery calcification There is no pericardial or pleural effusion. Lung window images demonstrate a 2 mm right upper lobe nodule on image 36. There is a calcified granuloma in the right lower lobe.. There are mild changes of emphysema with mild pulmonary scarring. Limited images of the upper abdomen demonstrate several low-attenuation masses in the upper pole of the right kidney cannot be accurately characterized without contrast but may represent cysts. IMPRESSION: 2 mm right upper lobe nodule. Modifier S: Severe left coronary artery calcification. Lung RADS category 2S. Recommend 12 month follow-up low-dose chest CT. Reviewed, Interpreted and Dictated by Cj Smith III, MD Transcribed by Neelam Jimenez Authenticated and . [facility]
== END ==
PROVIDERS: PCP Family Medicine; Visit Provider Physician Assistant
DX: Z87.891 Personal history of nicotine dependence (principal); Z12.2 Encounter for screening for malignant neoplasm of respiratory organs
CPT/HCPCS: 71271

== ENCOUNTER 2023-01-02 08:59 | Emergency (ER) | payer BC, MEDICARE, SELFPAY ==
--- NOTE | 2023-01-02 09:22 | EXP.UTC ---
Discharge Plan Disposition Patient Disposition: Home, Self-Care Condition: Good Prescriptions Prescriptions: New promethazine-DM 6.25-15 mg/5 mL Syrup 5 ml PO Q6H PRN (Reason: Cough) Qty: 240 0RF methylprednisolone 4 mg Tablets,Dose Pack 4 mg PO DIRECTED Qty: 21 0RF amoxicillin-pot clavulanate 875-125 mg Tablet 1 tab PO Q12H Qty: 20 0RF No Action vitamin B complex [B Complex-Vitamin B12] Tablet 1 tab PO DAILY indomethacin 25 mg capsule 50 mg PO ONCE PRN (Reason: Arthritis) allopurinol 300 mg tablet 300 mg PO DAILY Label Comments: TAKE ONE TABLET BY MOUTH EVERY DAY venlafaxine 75 mg capsule,extended release 24hr 150 mg PO DAILY thiamine HCl (vitamin B1) 250 mg tablet 250 mg PO DAILY Qty: 30 11RF gabapentin 300 mg capsule 300 mg PO HS Qty: 30 5RF losartan 25 mg tablet 25 mg PO DAILY Qty: 30 2RF metoprolol succinate 25 mg tablet extended release 24 hr 25 mg PO QDAY Qty: 90 3RF aspirin [Adult Low Dose Aspirin] 81 mg tablet,delayed release (DR/EC) 81 mg PO DAILY Qty: 30 5RF cefdinir 300 mg capsule 300 mg PO BID Qty: 20 0RF benzonatate 100 mg capsule 100 mg PO TID PRN (Reason: cough) Qty: 30 0RF colchicine 0.6 mg tablet 0.6 mg PO DAILY PRN (Reason: gout) Referrals Follow up/Referrals: Shubham Nettles MD [Primary Care Provider] - See instructions Activity Restrictions/Add. Instructions Additional Instructions/Restrictions: Drink plenty of fluids. Take tylenol or ibuprofen for pain or fever. Take the medications as directed. Follow up with your regular doctor. GO TO THE ER FOR ANY WORSENING SYMPTOMS The cough medication (promethazine dm) will make you drowsy, so don't drive or operate heavy machinery after taking it. Clinical Impressions Clinical Impression: Sinusitis, Bronchitis Instructions Patient Instructions: DI for Sinusitis, DI for Acute Bronchitis [place] Provider[place] Foster [place] [facility] [place] General Stated complaint: Cough,Vomitting,Congestion Time Seen by Provider: 01/02/23 09:22 History of Present Illness Provider Complaint: He states that for the past 1 week he has had sinus congestion, ear pain and chest congestion. He has a productive cough with greenish sputum also. Related Data Home Medications Medication Instructions Recorded Confirmed vitamin B complex (B 1 tab PO DAILY Supplement 05/11/19 12/25/22 Complex-Vitamin B12 tablet) allopurinol 300 mg tablet 300 mg PO DAILY 02/05/21 12/25/22 colchicine 0.6 mg tablet 0.6 mg PO DAILY PRN gout 03/12/21 12/25/22 indomethacin 25 mg capsule 50 mg PO ONCE PRN Arthritis 03/12/21 12/25/22 venlafaxine 75 mg capsule,extended 150 mg PO DAILY mood 04/16/21 12/25/22 release 24 hr Previous Rx's Medication Instructions Recorded gabapentin 300 mg capsule 300 mg PO HS #30 caps 06/21/21 thiamine HCl (vitamin B1) 250 mg 250 mg PO DAILY #30 tabs 06/21/21 tablet benzonatate 100 mg capsule 100 mg PO TID PRN cough #30 caps 07/29/22 cefdinir 300 mg capsule 300 mg PO BID #20 caps 07/29/22 aspirin 81 mg tablet,delayed 81 mg PO DAILY #30 tabs 12/25/22 release (Adult Low Dose Aspirin) losartan 25 mg tablet 25 mg PO DAILY #30 tabs 12/25/22 metoprolol succinate 25 mg 25 mg PO QDAY #90 tabs 12/25/22 tablet,extended release 24 hr amoxicillin 875 mg-potassium 1 tab PO Q12H #20 tabs 01/02/23 clavulanate 125 mg tablet methylprednisolone 4 mg tablets in 4 mg PO DIRECTED #21 tabs 01/02/23 a dose pack promethazine-DM 6.25 mg-15 mg/5 mL 5 ml PO Q6H PRN Cough #240 mL 01/02/23 oral syrup Allergies Allergy/AdvReac Type Severity Reaction Status Date / Time oxycodone Allergy Nausea Verified 01/02/23 09:32 BLACKBERRY Allergy Intermediate FACIAL PAIN Uncoded 12/25/22 10:21 [facility] Disclaimer: The information contained in this section may have been updated after the patient was seen, as this information can be updated
[2023-01-02 09:30] VITALS: BP 165/95; PULSE 73; RESP 16; TEMP 36.6; O2SAT 95; BMI 33.0
[2023-01-02 09:49] VITALS: BP 155/78; PULSE 80; RESP 16; TEMP 36.6
== END 2023-01-02 09:50 | disposition home or self-care (01) ==
PROVIDERS: Emergency Provider Nurse Practitioner Family; PCP Family Medicine
DX: J20.9 Acute bronchitis, unspecified (principal); J01.90 Acute sinusitis, unspecified; I10 Essential (primary) hypertension; F17.210 Nicotine dependence, cigarettes, uncomplicated
CPT/HCPCS: 99212; 99214; G0463

== ENCOUNTER → 2023-01-14 12:27 | Outpatient (CLI) | payer BC, MEDICARE, SELFPAY | PROVIDERS: PCP Family Medicine; Visit Provider Nurse Practitioner Family | DX: R07.9 Chest pain, unspecified (principal); I45.2 Bifascicular block | CPT/HCPCS: 78452; 93017; 93306; A9502; J2785 ==

== ENCOUNTER → 2023-02-26 09:10 | Outpatient (CLI) | payer BC, MEDICARE, SELFPAY ==
--- NOTE | 2023-02-26 | CA_ITS ---
FINAL REPORT TECHNIQUE: Color Doppler, duplex Doppler and madera scale sonography of the bilateral neck arterial vasculature was performed. Velocities were measured in the carotid arteries. Stenosis evaluation based on the validated velocity criteria. CLINICAL HISTORY: HTN, DIZZINESS, COMPARISON: None FINDINGS: The peak systolic velocity of the right common carotid artery is 58 cm/s. The peak systolic velocity of the right internal carotid artery is 68 cm/s and end diastolic velocity 24 cm/s. The ICA/CCA ratio is 1.44. A mild amount of plaque is present. The right external carotid artery is patent. The right vertebral artery is patent with antegrade flow. The peak systolic velocity of the left common carotid artery is 84 cm/s. The peak systolic velocity of the left internal carotid artery is 100 cm/s and end diastolic velocity 36 cm/s. The ICA/CCA ratio is 2.18. A mild amount of plaque is present. The left external carotid artery is patent.The left vertebral artery is patent with antegrade flow. IMPRESSION: Less than 50% bilateral carotid stenoses. Bilateral patent vertebral arteries with antegrade flow. If indicated, CTA or MRA could further evaluate. Reviewed, Interpreted and Dictated by Cj Smith III, MD Transcribed by Jessie Mejia Authenticated and [facility]
== END ==
PROVIDERS: PCP Family Medicine; Visit Provider Internal Medicine
DX: R42 Dizziness and giddiness (principal); I10 Essential (primary) hypertension
CPT/HCPCS: 93880

== ENCOUNTER 2023-04-04 13:15 | Emergency (ER) | payer BC, MEDICARE, SELFPAY ==
[2023-04-04 13:15] VITALS: BP 147/87; PULSE 80; RESP 16; TEMP 36.9; O2SAT 98; BMI 31.6
[2023-04-04 13:31] LABS: UTC Strep Screen (Rapid) Positive (Negative)
--- NOTE | 2023-04-04 13:37 | EXP.UTC ---
Discharge Plan Disposition Patient Disposition: Home, Self-Care Condition: Good Prescriptions Prescriptions: New amoxicillin-pot clavulanate 875-125 mg Tablet 1 tab PO Q12H Qty: 20 0RF No Action vitamin B complex [B Complex-Vitamin B12] Tablet 1 tab PO DAILY indomethacin 25 mg capsule 50 mg PO ONCE PRN (Reason: Arthritis) allopurinol 300 mg tablet 300 mg PO DAILY Patient Comments: TAKE ONE TABLET BY MOUTH EVERY DAY venlafaxine 75 mg capsule,extended release 24hr 150 mg PO DAILY thiamine HCl (vitamin B1) 250 mg tablet 250 mg PO DAILY Qty: 30 11RF gabapentin 300 mg capsule 300 mg PO HS Qty: 30 5RF aspirin [Adult Low Dose Aspirin] 81 mg tablet,delayed release (DR/EC) 81 mg PO DAILY Qty: 30 5RF losartan 100 mg tablet 100 mg PO DAILY Qty: 90 3RF metoprolol succinate [Toprol XL] 50 mg tablet extended release 24 hr 50 mg PO DAILY Qty: 30 2RF rosuvastatin [Crestor] 40 mg tablet 40 mg PO DAILY Qty: 30 2RF colchicine 0.6 mg tablet 0.6 mg PO DAILY PRN (Reason: gout) Referrals Follow up/Referrals: Shubham Nettles MD [Primary Care Provider] - See instructions Activity Restrictions/Add. Instructions Additional Instructions/Restrictions: Take all antibiotics as prescribed until gone. Replace toothbrush. Clinical Impressions Clinical Impression: Acute streptococcal pharyngitis Instructions Patient Instructions: DI for Strep Throat Discharge ED Provider: Jeanne Macdonald [facility] [place] General Stated complaint: sore throat Mode of Arrival: Ambulatory Source of Information: Patient Limitations: No Limitations Time Seen by Provider: 04/04/23 13:37 Description of Symptoms (Recalled from Triage Doc. by RN): Patient reports a sore throat and cough for 2 days. HEENT Symptoms (Recalled from RN notes): Yes Resp Symptoms (Recalled from RN notes): No Skin Symptoms (Recalled from RN notes): No MS Symptoms (Recalled from RN notes): No Functional Status (Recalled from RN notes): wnl History of Present Illness Provider Complaint: Sore throat, cough X 2 days. No fever. Exposed to strep. Onset (ago): day(s) (2) Related Data Home Medications Medication Instructions Recorded Confirmed vitamin B complex (B 1 tab PO DAILY Supplement 05/11/19 02/19/23 Complex-Vitamin B12 tablet) allopurinol 300 mg tablet 300 mg PO DAILY 02/05/21 02/19/23 colchicine 0.6 mg tablet 0.6 mg PO DAILY PRN gout 03/12/21 02/19/23 indomethacin 25 mg capsule 50 mg PO ONCE PRN Arthritis 03/12/21 02/19/23 venlafaxine 75 mg capsule,extended 150 mg PO DAILY mood 04/16/21 02/19/23 release 24 hr Previous Rx's Medication Instructions Recorded gabapentin 300 mg capsule 300 mg PO HS #30 caps 06/21/21 thiamine HCl (vitamin B1) 250 mg 250 mg PO DAILY #30 tabs 06/21/21 tablet aspirin 81 mg tablet,delayed 81 mg PO DAILY #30 tabs 12/25/22 release (Adult Low Dose Aspirin) metoprolol succinate 50 mg 50 mg PO DAILY #30 tabs 01/16/23 tablet,extended release 24 hr (Toprol XL) rosuvastatin 40 mg tablet (Crestor) 40 mg PO DAILY #30 tabs 01/16/23 losartan 100 mg tablet 100 mg PO DAILY #90 tabs 02/19/23 amoxicillin 875 mg-potassium 1 tab PO Q12H #20 tabs 04/04/23 clavulanate 125 mg tablet Allergies Allergy/AdvReac Type Severity Reaction Status Date / Time oxycodone Allergy Nausea Verified 02/19/23 09:53 BLACKBERRY Allergy Intermediate FACIAL PAIN Uncoded 02/19/23 09:53 Worker's Comp Is this a Worker's Comp case?: No [facility] Disclaimer: The information contained in this section may have been updated after the patient was seen, as this information can be updated by other users. Medical History Abnormal electrocardiogram [ECG] [EKG] Chest pain Coronary artery calcification seen on CAT scan Coronary artery disease Dyspnea Family history of ischemic heart disease (IHD) HLD (hyperlipidemia) HTN (hypertension) Peripheral neuropathy Tobacco use
[2023-04-04 13:48] VITALS: BP 147/87; PULSE 80; RESP 16; TEMP 36.9; O2SAT 98
== END 2023-04-04 13:49 | disposition home or self-care (01) ==
PROVIDERS: Emergency Provider Physician Assistant; PCP Family Medicine
DX: J02.0 Streptococcal pharyngitis (principal); F17.210 Nicotine dependence, cigarettes, uncomplicated; I25.10 Atherosclerotic heart disease of native coronary artery without angina pectoris; I11.9 Hypertensive heart disease without heart failure; E78.5 Hyperlipidemia, unspecified; G62.9 Polyneuropathy, unspecified
CPT/HCPCS: 87880; 99212; 99214; G0463

== ENCOUNTER 2025-02-03 10:58 | Outpatient (CLI) | payer BC, MEDICARE, SELFPAY ==
[2025-02-03 11:27] LABS: Basophils # 0.1 K/mm3 (0-0.2); Basophils % 1.1 % (0.1-2.0); Eosinophils # 0.4 Kmm3 (0.0-0.4); Eosinophils % 4.6 % (0.1-12.0); Hematocrit 45.4 % (42.0-52.0); Hemoglobin 16.1 g/dL (14.1-18.0); Lymphocytes # 2.3 K/mm3 (0.7-4.5); Lymphocytes % 30.2 % (10-50); Mean Corpuscular HGB Conc 35.5 g/dL (31.8-35.4); Mean Corpuscular Hemoglobin 33.5 pg (27.0-31.2); Mean Corpuscular Volume 94.4 fl (80-94); Mean Platelet Volume 10.2 fl (7.4-10.4); Monocytes # 0.7 K/mm3 (0.1-1.0); Monocytes % 9.2 % (1.7-9.3); Neutrophils # 4.2 K/mm3 (1.8-7.8); Neutrophils % 54.8 % (37.0-80.0); Nucleated Red Blood Cells # 0 10^3/uL; Nucleated Red Blood Cells % 0 %; Platelet Count 204 K/mm3 (142-424); Red Blood Count 4.81 M/mm3 (4.60-6.20); Red Cell Distribution Width-SD 45.4 fL; White Blood Count 7.6 K/mm3 (4.8-10.8)
[2025-02-03 11:46] LABS: Alanine Aminotransferase 22 U/L (12-78); Albumin Level 4.1 g/dl (3.5-5.0); Alkaline Phosphatase 59 U/L (38-126); Anion Gap 7.6 mEq/L (5-15); Aspartate Amino Transferase 30 U/L (17-59); Bilirubin,Direct 0.2 mg/dl (0.0-0.4); Bilirubin,Indirect 0.6 mg/dL (0.0-0.9); Bilirubin,Total 0.8 mg/dl (0.2-1.3); Bilirubin,Unconjugated 0.6 mg/dL (0.0-1.1); Blood Urea Nitrogen 11 mg/dl (9-20); Calcium 9.2 mg/dl (8.4-10.2); Carbon Dioxide 25 mmol/L (22.0-30.0); Chloride 107 mmol/L (98-107); Chol/HDL Ratio 4.9 (1-3.5); Cholesterol 177 mg/dl (140-200); Estimated Glomerular Filt Rate 98 ml/min (>60); GFR (African American) 118 ML/MIN (>60); Glucose 99 mg/dl (74-100); HDL Cholesterol 36 mg/dl (40-60); Magnesium 2.1 mg/dl (1.6-2.3); Potassium 4.6 mmoL/L (3.5-5.1); Sodium 135 mmol/L (136-145); Total Protein,Serum 6.7 g/dl (6.3-8.2); Triglycerides 300 mg/dl (30-150); VLDL Cholesterol 60 mg/dL (0-40)
[2025-02-03 11:57] LABS: Direct LDL Cholesterol 86.48 mg/dL (100-129)
[2025-02-03 12:05] LABS: Troponin I < 0.01 ng/ml (0.00-0.034)
[2025-02-03 12:49] LABS: Free T4 (Free Thyroxine) 1.19 ng/dl (0.78-2.19)
== END 2025-02-03 23:59 | disposition home or self-care (01) ==
LOC: LAB 11:01
PROVIDERS: PCP Physician Assistant; Visit Provider Nurse Practitioner Family
DX: I25.118 Atherosclerotic heart disease of native coronary artery with other forms of angina pectoris (principal); I10 Essential (primary) hypertension; E78.5 Hyperlipidemia, unspecified
CPT/HCPCS: 36415; 80048; 80061; 80076; 83735; 84439; 84443; 84484; 85025

== ENCOUNTER 2025-03-03 10:08 | Outpatient (CLI) | payer BC, MEDICARE, SELFPAY ==
--- NOTE | 2025-03-03 | CA_ITS ---
APPROVED REPORT Exam: Pharmacologic Technologist: Tatiana Bourgeois Ht: 5 ft 3 in Wt: 253 lbs BSA: 2.14 m2 Medical History Medications: Albuterol, allopurinol, colchichine, indomethacin, venlafaxine ER Stress Test Details Test: Lexiscan Reason for pharmacologic stress test: physical limitation. HR Resting HR: 78 bpm Max Heart Rate (APMHR): 157 bpm Max HR Achieved: 87 bpm Target HR (85% APMHR): 133 bpm % of APMHR: 55 Recovery HR: 85 bpm BP Resting BP: 159.0/79.0 mmHg Max BP: 159.0/79.0 mmHg Recovery BP: 153.0/79.0 mmHg ECG Stress ECG Conclusion Symptoms: SOA. Arrhythmias/Ectopy: Freq PAC. ST-T Changes: EKG nondiagnostic-Roxy. Electronically signed by : Chloé Gregory MD 03/05/2025 21:05:19
--- NOTE | 2025-03-03 10:11 | CA_ITS ---
APPROVED REPORT EXAM: Comprehensive 2D, Doppler, and color-flow Echocardiogram Real Estate Subagent: Mariela Yu RVT Ht: 6 ft 1 in Wt: 253lbs BSA: 2.38 BP: 140/76 mmHg Indications: AL,PRE-OP,CAD,HTN,HLD,SMOKER 2D Dimensions IVSd 1.64 cm M: 0.6-1.2 LA Volume 46.60 mL PWd 1.08 cm M: 0.6 - 1.2 LA Volume Index 19.58 mL/m2 (M/F) 16-34 LVDd 5.10 cm M: 4.2 - 5.9 LVDs 3.99 cm M: 2.5 - 4.0 M-Mode Dimensions RVDd 3.61 cm (0.9-2.6) LA Diam 3.96 cm (1.9-4.0) LVDd 4.64 cm (3.5-5.7) LVDs 2.90 cm (3.5-5.7) IVSd 1.69 cm (0.6-1.1) PWd 1.08 cm (0.6-1.1) EF (Teich) 67.60% FS 37.50% EDV (Teich) 99.30 mL TAPSE 2.56 (<1.7) ESV (Teich) 32.20 mL LV Diastology E Decel Time 343 (160-240 msec) E/A Ratio 0.7 Aortic Valve LEIGHTON Index 1.54 cm2/m2 AoV Peak Timur. 142.0 (50-130 cm/s) AO Peak GR. 8.10 mmHg AO Mean GR. 4.60 (<5 mmHg) AO VTI 26.6 (18-25 cm) LEIGHTON (VTI) 3.76 (2.5-4.5 cm2) Mitral Valve MV E Max Timur. 41.0 (40-130 cm/s) MV A Velocity 56.0 (40-130 cm/s) E/A Ratio 0.74 MV PHT 101.0 ms Pulmonary Valve PV Peak Velocity 80.0 (50-150 cm/s) Tricuspid Valve TR P. Velocity 128.00 cm/s RAP Estimate 10.00 mmHg RVSP 16.50 mmHg Left Ventricle The left ventricle is normal size. The left ventricular systolic function is normal. The left ventricular ejection fraction is within the normal range. There is increased LV wall LVEF is 55%. Thickness. There is normal LV segmental wall motion. The left ventricular diastolic function is normal. Right Ventricle The right ventricle is normal size. The right ventricular systolic function is normal. Atria Left atrium is mildly dilated. Right atrium is mildly dilated. Aortic Valve There is no Doppler evidence of interatrial shunt. Aortic valve is mildly thickened. There is no aortic valvular stenosis. Mild aortic regurgitation. Mitral Valve The mitral valve is normal in structure. No evidence of mitral valve stenosis. Trace mitral regurgitation. Tricuspid Valve Tricuspid valve is grossly normal in structure and function. Trace tricuspid regurgitation. There is insufficient TR jet to estimate RVSP. Pulmonic Valve The pulmonary valve is normal in structure. Trace pulmonic regurgitation. Great Vessels The aortic root is normal in size. The ascending aorta is mildly dilated, measuring 3.9 cm in diameter. IVC is normal in size and collapses >50% with inspiration. Pericardium There is no pericardial effusion. Epicardial fat pad is present. Other Information Study Quality: Fair Conclusion Normal biventricular systolic function. Mild biatrial dilation. Mild AI. Mildly dilated ascending aorta, measuring 3.9 cm in diameter. Correlation with new or recent CTA chest is suggested. Electronically signed by : Chloé Gregory MD 03/09/2025 14:40:28
--- NOTE | 2025-03-03 11:30 | NM_ITS ---
APPROVED REPORT Exam: Nuclear Stress Test Indication: Chest pain, SOB, Fatigue, High cholesterol, Tobacco use Patient Location: Outpatient Stress Tech: Tatiana BAZAN Tech:TIMO Mills RT(R)(N) Ht: 6 ft 0 in Wt: 240 lbs HR: 77 bpm BP: 159/79 mmHg BSA: 2.30 m2 TID: 1.09 History: Chest pain, SOB, Fatigue, High cholesterol, Tobacco use Procedure: Patient received 0.4 mg of intravenous Lexiscan, resting heart rate 77 bpm, resting blood pressure 159/79 mmHg, with Lexiscan maximum heart rate achieved was 90 bpm which is % of the maximum predicted heart rate and blood pressure was 153/79 mmHg. With Lexiscan, patient denied any complaint of chest pain. Cardiac Stress and Resting SPECT Images: Cardiac Stress and Resting SPECT images were obtained using technetium 99m Myoview 29.0 mCi stress and 10.98 mCi at rest. Resting and stress imaging in supine and prone positions demonstrate a medium sized, moderate, predominantly fixed perfusion defect in the inferior LV wall. There is a small region of reversibility towards the distal inferior LV wall. Gated imaging demonstrates mildly reduced LV systolic function. There is moderate hypokinesis of the basal inferior LV wall. LVEF is calculated at 41%. Conclusion: Medium sized, moderate, predominantly fixed perfusion defect in the inferior LV wall. There is a small region of reversibility towards the distal inferior LV wall. Findings are suggestive of partial reversible ischemia. Gated imaging demonstrates mildly reduced LV systolic function. There is moderate hypokinesis of the basal inferior LV wall. LVEF is calculated at 41%. Electronically signed by : Chloé Gregory MD 03/05/2025 21:01:05
[2025-03-03] MEDS: SODIUM CHLORIDE 0.9% 10ML SYR (RAD ONLY) 10 ML IV ×2 (14:04)
[2025-03-03] MEDS: ISOTOPE MYOVIEW (PER STUDY) 1 DOSE IV (14:04)
[2025-03-03] MEDS: REGADENOSON 0.4MG/5ML SYRINGE 0.4 MG IV (14:04)
== END 2025-03-03 23:59 | disposition home or self-care (01) ==
LOC: RT 10:10
PROVIDERS: PCP Physician Assistant; Visit Provider Nurse Practitioner Family
DX: Z01.810 Encounter for preprocedural cardiovascular examination (principal); I11.9 Hypertensive heart disease without heart failure; I35.1 Nonrheumatic aortic (valve) insufficiency; I49.1 Atrial premature depolarization; I77.810 Thoracic aortic ectasia; I25.10 Atherosclerotic heart disease of native coronary artery without angina pectoris; E78.00 Pure hypercholesterolemia, unspecified; R94.39 Abnormal result of other cardiovascular function study; F17.200 Nicotine dependence, unspecified, uncomplicated
CPT/HCPCS: 78452; 93017; 93018; 93306; A9502; J2785

== ENCOUNTER 2025-03-11 12:42 | Outpatient (CLI) | payer BC, MEDICARE, SELFPAY ==
--- OUTSIDE RECORDS SUMMARY | 2025-03-11 12:44 | XMS_ITS | Clinical Summary ---
Author Organization Healthcare Address [address] [place] [address] Care Team Providers Care Sludge Control Attendant Name Role Phone Unavailable Primary Care Provider Unavailabl e Social History Tobacco Use Types Packs/Day Years Used Date Smoking Tobacco: Never Assessed Sex and Gender Information Value Date Recorded Sex Assigned at Not on file Legal Sex Male 3:32 PM EDT Gender Identity Not on file Sexual Orientation Not on file Plan of Treatment Health Maintenance Due Date Last Done Comments [facility]-Depression Screening 1961 [facility]-Infant/Child/Adol SDOH Screenings 1961 [facility]- SDOH Screenings 1979 [facility]-Adult SDOH Screenings 1979 CT Colonography 2006 Colonoscopy 2006 FIT-DNA 2006 FIT 2006 FOBT 2006 Sigmoidoscopy 2006 [facility]-Colorectal Cancer Screening 2006 [facility]-Pneumococcal Vaccine: 50 + Years (1 of 1 - PCV) 2011 [facility]-Zoster Vaccines (1 of 2) 2011 [id number] Vaccine (1 - 2023- season) 2024 [facility]-Influenza Vaccine (Seas[place] n Ended) 2025 [facility]-DTaP,Tdap,and Td Vaccine s (3 - Td or Tdap) 07/17/2031 07/17/2021, 04/28/2019 [facility]-RSV Vaccine: 60+ Years o r (1 - 1-dose 75+ series) 2036 HPV Vaccines Aged Out No longer eligi ble based on patient's age to complete this topic [facility]-HIB Vaccines Aged Out No longer e ligible based on patient's age to complete this topic [facility]-Hepatitis A Vaccines Aged Out No longer eligible based on patient's age to complete this topic [facility]-IPV Vaccines Aged Out No longer e ligible based on patient's age to complete this topic [facility]-Rotavirus Vaccines Aged Out No lo nger eligible based on patient's age to complete this topic Insurance [facility] MEDIC[facility]
--- NOTE | 2025-03-11 13:00 | CT_ITS ---
FINAL REPORT TECHNIQUE: Axial imaging of the chest is obtained after the administration of contrast. 3-D MIP reformatted images were also obtained and reviewed per PE protocol. CLINICAL HISTORY: rule out aneurysm COMPARISON: 12/11/2022 FINDINGS: There is a 4.3 cm ascending aortic aneurysm, unchanged from prior. There is no evidence of dissection. Heart size is normal. There is no mediastinal, hilar, or axillary lymphadenopathy. Note is made of emphysema. There is a subpleural 3 mm nodule in the right upper lobe well-seen on series 3, image 33. This is unchanged from prior exam. There is no pleural or pericardial effusion. Limited images of the upper abdomen show several hypodense lesions arising from the right kidney on the coronal images. No acute osseous abnormality. IMPRESSION: Stable ascending aortic aneurysm. Stable, very small right upper lobe pulmonary nodule. Reviewed, Interpreted and Dictated by Nell Ackerman MD Transcribed by Judith Lewis Authenticated and . [facility]
[2025-03-11 13:04] LABS: Blood Urea Nitrogen 15 mg/dl (9-20); Estimated Glomerular Filt Rate 75 ml/min (>60); GFR (African American) 91 ML/MIN (>60)
[2025-03-11] MEDS: IOPAMIDOL-370 (76%);100ML BOTTLE 100 ML IV (13:16)
[2025-03-11] MEDS: SODIUM CHLORIDE 0.9% 10ML SYR (RAD ONLY) 10 ML IV (13:16)
[2025-03-11] MEDS: 0.9 % SODIUM CHLORIDE 50 ML VIAL IV (13:16)
== END 2025-03-11 23:59 | disposition home or self-care (01) ==
LOC: RAD 12:43
PROVIDERS: PCP Physician Assistant; Visit Provider Nurse Practitioner Family
DX: I71.21 Aneurysm of the ascending aorta, without rupture (principal); R91.1 Solitary pulmonary nodule; I25.118 Atherosclerotic heart disease of native coronary artery with other forms of angina pectoris; R94.39 Abnormal result of other cardiovascular function study
CPT/HCPCS: 36415; 71275; 82565; 84520; Q9967

== ENCOUNTER 2025-03-21 08:25 | Day surgery (SDC) | payer BC, MEDICARE, SELFPAY ==
[2025-03-21] VITALS (11 sets, daily range): BP systolic 122–179; BP diastolic 75–105; PULSE 61–80; RESP 16–20; O2SAT 94–99; BMI 33.7
--- NOTE | 2025-03-21 07:10 | IR_ITS ---
APPROVED REPORT Patient Location: Outpatient PROCEDURES Left heart catheterization Left ventriculogram Selective coronary angiogram Drug-eluting stent deployment to the mid and distal dominant right coronary INDICATION Coronary artery disease, Angina pectoris, Abnormal Myoview with inferior ischemia, Informed consent was obtained prior to the procedure. COMPLICATIONS NONE Estimated Blood Loss: LESS THAN 10 ML TECHNIQUE One percent lidocaine used to anesthetize the right anterior aspect of the wrist. The right radial artery was accessed via the Seldinger technique. A 6 Sami sheath was placed in the right radial artery. 2.5 mg of Verapamil, 800 mcg of nitroglycerin, 1mg Lidocaine and 5000 U Heparin were given through the arterial sheath. The JL3 catheter was also used to perform left heart catheterization, left ventriculogram and selective coronary angiogram. At the end of the diagnostic angiogram therapeutic Was administered given a therapeutic ACT and the guide catheter was placed in the right coronary artery followed by Choice PT extra-support wire placed distally. 3.5 x 38 mm Doran frontier stent was deployed at 20 narciso reducing the stenosis an additional 3.5 x 26 mm Doran frontier stent was placed distal to the for stent yet still overlapping and deployed at 14 narciso. The balloon was brought back into the midportion of the stent deployed at 24 narciso and then 24 narciso throughout the 38 mm stent. ALDO-3 flow was present before and after the procedure. At the end the procedure the apparatus was removed the sheath was removed and hemostasis was achieved using TR banding patient was transferred to the postop putting her in stable condition ANGIOGRAPHIC RESULTS The left main artery Has an ostial 10% stenosis The left anterior descending artery Has proximal 10% luminal regularities with 40 to 50% stenosis distal to the first diagonal artery and an additional 50% stenosis proximal to the second diagonal artery. Distally there is ALDO II flow as the LAD approaches the apex The circumflex artery Is nondominant has proximal 40% stenosis with 20 and 30% stenoses in the obtuse marginal arteries The right coronary artery Large and dominant and has mid vessel 70% stenosis with additional 40% stenoses which extend distally throughout the vessel just proximal to large posterior descending and posterior ventricular branch The ZACARIAS ventriculogram reveals Preserved 55% The left ventricular end-diastolic pressure Elevated at 20 mmHg IMPRESSION Inferior ischemia on Myoview with severe disease in the mid dominant right coronary artery with successful stenting of the mid and distal vessel with 2 contiguous drug-eluting stents Persistent ALDO II flow in the distal LAD preceded by 2 moderate tandem stenoses possibly from endothelial dysfunction and or macrovascular disease involving the mid LAD Preserved ejection fraction Elevated LVEDP PLAN 1. Dual antiplatelet therapy for drug-eluting stenting of the right coronary 2. Will add Imdur 30 mg daily plus Ranexa 500 mg twice daily for possible endothelial dysfunction involving the LAD 3. If patient continues with angina following this procedure and does not respond to Imdur combined with Ranexa I would consider bringing him back in stenting the mid LAD. 4. As of now patient continues to smoke tobacco and the tobacco may be contributing to the slow flow down the LAD system. It is unlikely although still possible that the moderate mid stenoses are causing the slow flow down the LAD but it is more likely related to tobacco usage and endothelial dysfunction 5. LDL less than 55 achieved with high intensity statin 6. Cardiac rehabilitation 7. Risk factor modification 8. Strongly recommend complete tobacco cessation Electronically signed by : Dougie Beebe MD 03/21/2025 14:30:08
[2025-03-21 09:07] LABS: Basophils # 0.1 K/mm3 (0-0.2); Basophils % 0.8 % (0.1-2.0); Eosinophils # 0.2 Kmm3 (0.0-0.4); Eosinophils % 3.4 % (0.1-12.0); Hematocrit 42.3 % (42.0-52.0); Hemoglobin 14.5 g/dL (14.1-18.0); Immature Granulocytes # 0.02 10^3uL; Immature Granulocytes % 0.3 %; Lymphocytes # 2.3 K/mm3 (0.7-4.5); Lymphocytes % 32.9 % (10-50); Mean Corpuscular HGB Conc 34.3 g/dL (31.8-35.4); Mean Corpuscular Hemoglobin 32.8 pg (27.0-31.2); Mean Corpuscular Volume 95.7 fl (80-94); Monocytes # 0.7 K/mm3 (0.1-1.0); Monocytes % 9.7 % (1.7-9.3); Neutrophils # 3.8 K/mm3 (1.8-7.8); Neutrophils % 52.9 % (37.0-80.0); Nucleated Red Blood Cells # 0 10^3/uL; Nucleated Red Blood Cells % 0 %; Platelet Count 195 K/mm3 (142-424); Red Blood Count 4.42 M/mm3 (4.60-6.20); Red Cell Distribution Width 12.8 % (11.5-17.5); White Blood Count 7.1 K/mm3 (4.8-10.8)
[2025-03-21 09:08] LABS: Chloride 108 mmol/L (98-107); Sodium 141 mmol/L (136-145)
[2025-03-21 09:09] LABS: Potassium 4.3 mmoL/L (3.5-5.1)
[2025-03-21 09:11] LABS: Blood Urea Nitrogen 11 mg/dl (9-20); Creatinine Clearance Estimated 124 mL/min (50-200); Estimated Glomerular Filt Rate 85 ml/min (>60); GFR (African American) 103 ML/MIN (>60)
[2025-03-21 09:12] LABS: Calcium 8.8 mg/dl (8.4-10.2); Carbon Dioxide 29 mmol/L (22.0-30.0); Glucose 104 mg/dl (74-100)
[2025-03-21 09:17] LABS: Anion Gap 8.3 mEq/L (5-15)
[2025-03-21] MEDS: NITROGLYCERIN 800MCG/8ML SYR (CATH LAB) 800 MCG IA (10:27)
[2025-03-21] MEDS: VERAPAMIL 2.5MG/ML 2ML VIAL 2.5 MG IV (10:27)
[2025-03-21] MEDS: HEPARIN 1,000 UNITS/500ML NS (CATH LAB) 3000 UNIT IV (10:27)
[2025-03-21] MEDS: diphenhydrAMINE 50MG/ML VIAL 50 MG IV (10:27)
[2025-03-21] MEDS: HEPARIN 1,000 UNITS/ML 10ML VIAL (CATH LAB) 5000 UNIT IV ×2 (10:27→10:52)
[2025-03-21] MEDS: LIDOCAINE 1% 10ML MDV 10 ML IJ (10:27)
[2025-03-21] MEDS: 0.9 % SODIUM CHLORIDE 500 ML 25 ML IV (10:27)
[2025-03-21] MEDS: MIDAZOLAM HCL 1MG/ML 5ML VIAL 1 MG IV (10:40)
[2025-03-21] MEDS: FENTANYL 100MCG/2ML VIAL 50 MCG IV (10:41)
[2025-03-21] MEDS: PRASUGREL 10MG TAB 60 MG PO (11:10)
--- NOTE | 2025-03-21 14:00 | SUR.PHASEII ---
No RHONDA or ARB per MD
[2025-03-21] MEDS: IOPAMIDOL-370 (76%);100ML BOTTLE 125 ML IV (15:02)
[2025-03-21 15:04] LABS: CATHL Activated Clotting Time 317 SEC (74-125)
== END 2025-03-21 14:25 | disposition home or self-care (01) ==
LOC: CATHLAB 08:26
PROVIDERS: PCP Physician Assistant; Visit Provider Internal Medicine
PROC: 4A023N7 Measurement of Cardiac Sampling and Pressure, Left Heart, Percutaneous Approach (ICD-10-PCS; CPT 93452; principal; 2025-03-21 08:45)
DX: I25.118 Atherosclerotic heart disease of native coronary artery with other forms of angina pectoris (principal); R94.39 Abnormal result of other cardiovascular function study; I10 Essential (primary) hypertension; E78.5 Hyperlipidemia, unspecified; G62.9 Polyneuropathy, unspecified; F17.210 Nicotine dependence, cigarettes, uncomplicated; Z79.2 Long term (current) use of antibiotics; Z79.82 Long term (current) use of aspirin; Z79.899 Other long term (current) drug therapy; Z88.5 Allergy status to narcotic agent; Z95.5 Presence of coronary angioplasty implant and graft; Z82.49 Family history of ischemic heart disease and other diseases of the circulatory system
CPT/HCPCS: 92928; 93458; 80048; 85025; 85347; 99152; 99153; C1725; C1760; C1769; C1874; C9600; J1200; J1644; J3010; J7040; Q9967

== ENCOUNTER 2025-05-19 14:21 | Outpatient (CLI) | payer BC, MEDICARE, SELFPAY ==
--- OUTSIDE RECORDS SUMMARY | 2025-05-19 14:25 | XMS_ITS | Clinical Summary ---
Author Organization [facility] Address [address] [place] [address] Care Team Providers Care Cycling Instructor Name Role Phone Unavailable Primary Care Provider Unavailabl e Social History Tobacco Use Types Packs/Day Years Used Date Smoking Tobacco: Never Assessed Abuse Screen Answer Date Recorded Unsafe at Home or Work/School Not on file Feels Threatened by Someone? Not on file 08/2023 Does Anyone Keep You from Co ntacting Others or Doint Things Outside the Home? Not on file 07/16/2023 Physical Sign of Abuse Present Not on file 1 Housing Stability Answer Date Recorded Current Living Arrangements Not on file 07/06 Potentially Unsafe Housing Conditions Not on kaylene e 07/16/2023 Family and Community Support Answer Keegan e Recorded Help with Day-to-Day Activities Not on file 07/16/2023 Lonely or Isolated Not on file 07/16/2023 Employment Answer Date Recorded Do you want help finding or keeping work or a diego b? Not on file 07/16/2023 Disabilities Answer Date Recorded Concentrating, Remembering, or Making Decisions Difficulty Not on file 07/16/2023 Doing Errands Independently Difficulty Not on fi le 07/16/2023 Education Answer Date Recorded Help with school or training? Not on file Preferred Language Not on file 07/16/2023 Sex and Gender Information Value Date Recorded Sex Assigned at Not on file Legal Sex Male 11:53 AM EDT Gender Identity Not on file Sexual Orientation Not on file Last Filed Vital Signs Vital Sign Reading Time Taken Comments Blood Pressure 131/81 02/10/2013 8:53 AM EDT Pulse - - Temperature - - Respiratory Rate - - Oxygen Saturation - - Inhaled Oxygen Concentration - - Weight 112 kg (246 lb 0.2 oz) 02/10/2013 8:53 AM EDT Height 182.9 cm (6') 02/10/2013 8:53 AM EDT Body Mass Index 33.37 02/10/2013 8:53 AM EDT Plan of Treatment Health Maintenance Due Date Last Done Comments ANNUAL PHYSICAL 1960 HEPATITIS C SCREENING 1961 TDAP/TD VACCINES (1 - Tdap) 1980 COLOGUARD 2006 COLON CANCER SCREENING 5 YEAR SIGMOIDOSCOPY 2006 COLONOSCOPY [address] CANCER SCREENING [address] COLONOGRAPHY 2006 FECAL OCCULT BLOOD TEST 2006 FIT Testing (1 year) 2006 Pneumococcal Vaccine 50+ (1 of 1 - PCV) 2011 ZOSTER VACCINE (1 of 2) 2011 COVID-19 Vaccine (1 - 2023- season) 2024 INFLUENZA VACCINE 07/06/2025
--- OUTSIDE RECORDS SUMMARY | 2025-05-19 14:25 | XMS_ITS | Patient Health Record ---
Author Organization [facility] Address [address] [facility] [place] [address] [place] [id number] Care Team Providers Care Ticket Agent Name Role Phone Alexandra Nettles Primary Care Provider Phoenix Mayer Unavailable [phone] DudleyEileen mckeon Unavailable [phone] Allergies Allergen (clinical drug ingredient) Drug/Non Drug Allergy documented on EMR Reaction Allergy Type Onset Date Status cefuroxime Cefuroxime rash, blood shot eyes, SOA, Drug Allergy 06/28/2018 Active Results Component Value Reference Range Notes Influenza Screen (in house) (Not yet reviewed by provider) Interpretation: Performing Lab: Notes/Report: results neg CBC Fingerstick (in house) ( Not yet reviewed by provider) Interpretation: Performing Lab: Notes/Report: wbc 9.4 3.5 - 10 lym 23.9 15 - 50 mid 6.1 2 - 15 gran 70.0 35 - 80 rbc 4.45 3.5 - 5.5 hgb 14.6 11.5 - 16.5 hct 42.4 35 - 55 mcv 95.4 75 - 100 mch 32.8 25 - 35 mchc 34.4 31 - 38 plat 215 100 - 400 Covid test (in house) (Not y et reviewed by provider) Interpretation: Performing Lab: Notes/Report: Result: neg P-PSA Reviewed date:04/22/2025 01:25:59 PM Interpretation:Normal Performing Lab: Notes/Report: Test performed by [facility] [address] [place] [address] , [address], [place] [address] Joseph Martin MD, Accounting Bookkeeper CLIA: [id number] PSA 2.49 <4.00 ng/mL Please note this is an ultrasensitive PSA assay with a lower limit of detection of 0.014 ng/mL. This test is performed by the Antoinette ECLIA methodology. Values obtained with different assay methods or kits cannot be directly compared. Medications Medication SIG (Take, Route, Frequency, Duration) Notes Start Date End Date Status Prasugrel HCl 10 MG as directed Orally Active Colchicine 0.6 mg TAKE ONE TABLET BY MOUTH EVERY DAY NEEDED; Duration: 90 Active Ranolazine ER 500 MG 1 tablet Orally Twice a day Active Triamcinolone Acetonide 0.1 % 1 application Externally Three times a day 03/25/2024 Active Vascepa 1 GM 2 capsules with meals Orally Twice a day; Duration: 90 days 04/24/2023 Active EPI PEN 0.3 MG, 1:1000 DIRECTED SUBCUTANEOUS *Please review for potential replacement for e-prescription and drug interaction check* 07/01/2018 Active Allopurinol 300 MG 1 tablet Orally Once a day; Duration: 30 day(s) Active Venlafaxine HCl ER 75 MG 1 cap(s) orally once a day; Duration: 90 days Active Isosorbide Mononitrate 30 MG 1 tablet in the morning Orally Once a day Active Albuterol Sulfate HFA 108 (90 Base) MCG/ACT 1 puff as needed Inhalation every 4 hrs, prn 12/08/2024 Active Aspirin 81 81 MG 1 tablet Orally Once a day Active Sildenafil Citrate 50 MG 1 tablet as needed Orally Once a day; Duration: 30 day(s) Active Stiolto Respimat 2.5-2.5 MCG/ACT INHALE 2 PUFFS BY MOUTH ONCE DAILY, SHAKE WELL BEFORE USE; Duration: 30 days Active B-12 1000 MCG 1 tab(s) orally once a day 06/24/2019 Active Albuterol Sulfate HFA 108 (90 Base) MCG/ACT 1-2 puff(s) inhaled every 6 hours, prn 02/27/2023 Active Crestor 20 MG 1 tablet Orally Once a day; Duration: 90 days Active Indomethacin 50 MG 1 cap(s) orally 3 times a day as needed Active Metoprolol Succinate ER 25 MG 1 tablet Orally Once a day Active Immunizations Vaccine Route Administration Date Status Comme nts Fluzone Intradermal Quad private(18-64yrs) ID Intradermal 08/04/2015 Administered Hepatitis A (adult) IM Intramuscular 09/17/2018 Administer ed Hepatitis A (adult) IM Intramuscular 03/23/2019 Administer ed Tetanus Tdap-Adacel (over 7yrs) IM Intramuscular 01/04/2013 Administered Tetanus Tdap-Adacel (over 7yrs) IM Intramuscular 04/28/2019 Administered Tetanus Tdap-Adacel (over 7yrs) Unknown 07/17/2021 Administered xFlu shot-36 months and older IM Intramuscular 06/21/2011 Administered xFluzone (6mos and older)-trivalent IM Intramuscular 06/21/2010 Administered xFluzone (6mos and older)-trivalent IM Intramuscular 08/02/2013 Administered xFluzone Intradermal (18-64yrs)-trivalent ID Intradermal 07/07/2012 Administered Problems Problem Type SNOMED Code ICD Code Onset Dates Problem Status W/U Status Risk Notes Problem Arthritis (5222406) Arthritis (M19.90) Active confirmed Problem Seasonal allergic rhinitis (323017730) Other seasonal allergic rhinitis (J30.2) Active confirmed Problem Mixed hyperlipidemia (148403203) Mixed hyperlipidemia (E78.2) Active confirmed Problem Reactive depression (situational) (81237751) Situational depression (F43.21) Active confirmed Problem COPD - Chronic obstructive pulmonary disease (24194508) Chronic obstructive pulmonary disease, unspecified COPD type (J44.9) Active confirmed Problem Ex-tobacco user (finding) (893765520) History of tobacco abuse (Z87.891) Active confirmed Problem Erectile dysfunction (disorder) (790467014) Erectile dysfunction, unspecified erectile dysfunction type (N52.9) Active confirmed Problem Insomnia (946356118) Insomnia, unspecified type (G47.00) Active confirmed Problem Dyslipidemia (799959006) Dyslipidemia (E78.5) Active confirmed Problem Postconcussion syndrome (73646193) Post concussion syndrome (F07.81) Active confirmed Problem History of placement of stent for coronary artery disease (situation) (900188385) History of coronary artery stent placement (Z95.5) Active confirmed Problem Gout (75159754) Acute gout of right wrist, unspecified cause (M10.9) Active confirmed Problem Loss of vision of left eye (931538203) Vision loss, left eye (H54.62) Active confirmed Problem Neuropathy of both feet (G57.93) Active confirmed Vital Signs Heart Rate 100 /min 05/19/2025 Blood pressure diastolic 70 mm Hg 05/19/2025 Height 73.25 in 05/19/2025 Blood pressure systolic 120 mm Hg 05/19/2025 Weight 252.6 lbs 05/19/2025 BMI 33.1 kg/m2 05/19/2025 Encounters Encounter Location Date Provider Diagnosis [facility] [address] [place] [id number] 12/08/2024 Eileengaetano Knox Injury of nail bed o f toe S99.929A and Bronchitis J40 [facility] [address] [place] [id number] 04/20/2025 Eileen Lisette Chronic obstructive pulmonary disease, unspecified COPD type J44.9 ; History of coronary artery stent placement Z95.5 ; Mixed hyperlipidemia E78.2 ; Other seasonal allergic rhinitis J30.2 ; Situational depression F43.21 and Screening PSA (prostate specific antigen) Z12.5 [facility] [address] [place] [id number] 05/19/2025 Eileengaetano Knox Vertigo R42 ; Chest pain, unspecified type R07.9 and Body aches R52 [facility] [address] [place] [id number] 05/09/2025 R Rupert Yoon [facility] [address] [place] [id number] 01/06/2025 R Rupert Yoon Situational depressi on F43.21 [facility] [address] [place] [id number] 02/02/2025 R Rupert Yoon [facility] [address] [place] [id number] 04/13/2025 R Rupert Yoon Bronchitis J40 Assessments Encounter Date Diagnosis (ICD Code) Assessment Notes Treatment Notes Treatment Clinical Notes Section Notes 12/08/2024 Bronchitis (ICD-10 - J40) 12/08/2024 Injury of nail bed of toe (ICD-10 - S99.929A) Will start on abx and keep toe clean and covered. If it gets worse or starts draining will need to call. 01/06/2025 Situational depression (ICD-10 - F43.21) 04/13/2025 Bronchitis (ICD-10 - J40) 04/20/2025 Chronic obstructive pulmonary disease, unspecified COPD type (ICD-10 - J44.9) 04/20/2025 History of coronary artery stent placement (ICD-10 - Z95.5) See patient docs for recent labs and chest CT. 05/19/2025 Vertigo (ICD-10 - R42) 05/19/2025 Chest pain, unspecified type (ICD-10 - R07.9) 04/20/2025 Mixed hyperlipidemia (ICD-10 - E78.2) 05/19/2025 Body aches (ICD-10 - R52) 04/20/2025 Other seasonal allergic rhinitis (ICD-10 - J30.2) 04/20/2025 Situational depression (ICD-10 - F43.21) 04/20/2025 Screening PSA (prostate specific antigen) (ICD-10 - Z12.5) Plan Of Treatment Pending Test Test Name Order Date Influenza Screen (in house) 05/19/2025 CBC Fingerstick (in house) 05/19/2025 EKG with rhythm strip 05/19/2025 H-TSH 05/19/2025 H-CBC 05/19/2025 H-CMP 05/19/2025 H-VITAMIN B12 05/19/2025 H-Cardiac Enzymes 05/19/2025 P-PSA 11/20/2022 Covid test (in house) 05/19/2025 Next Appt Details Provider Name:Eileen young, 05/19/2025 01:30:00 PM, [address], [address], [place], [place], [id number], Insurance Providers Payer Name Payer Address Payer Phone Subscriber Number Group Number Insured Name Patient Relationship to Insured Coverage Start Date Coverage End Date [employer] [address] [place] [address] [phone] [id number] Foster Mendiola Self - patient is the insured MEDICARE PART B [address] [address] [place] [address] [id number] Foster Mendiola Self - patient is the insured Medications Administered Medication Instructions Date of Administration Dosage Notes B-12 04/19/2011 1 mL B-12 04/26/2011 1 mL B-12 05/06/2011 B-12 05/10/2011 B-12 03/27/2017 1 mL B-12 04/02/2017 1 mL B-12 04/10/2017 1 mL B-12 04/17/2017 1 mL B-12 04/24/2017 1 mL B-12 05/27/2017 1 mL B-12 07/01/2017 1 mL B-12 08/26/2017 1 mL B-12 01/26/2021 1 mL B-12 04/02/2024 1 mL B-12 04/09/2024 1 mL B-12 04/23/2024 1 mL Depo- Medrol 40 mg/ml 05/29/2011 1.5 Depo- Medrol 40 mg/ml 11/19/2013 1.5 mL Dexamethasone 06/07/2014 1 mL Dexamethasone 01/18/2016 1 mL Dexamethasone 10/08/2016 1 mL Dexamethasone 07/10/2018 1 mL Dexamethasone 12/05/2023 1 mL Dexamethasone 03/17/2024 1 mL epinephrine 07/10/2018 0.5 mg Medical (General) History Medical History History ICD Code Gout Disbabled from closed head injury - 1991 migraine headache Surgical History Surgery Date(Month/Year) LT Knee Arthroscopy RT Knee- Dr Deleon 07/2016 Esophageal Dilation 2018 Epidemitis - Dr. Lopez 06/2019 2 cardiac stents 03/2025 Hospitalization History Reason Date(Month/Year) Migraine- ER in [place] 12/2012 Allergic Reaction- [facility] ER 08/2015 Allergic Reaction to Gravy- [facility] 04/24 15
--- OUTSIDE RECORDS SUMMARY | 2025-05-19 14:25 | XMS_ITS ---
Author Organization Unknown Allergies, Adverse Reactions and Alerts Date IsAllergic OnsetDate Allergen Reaction Type Severity Francis rgyCode Legacyallergictoid ReactionCode ReactionCodeSystemID Custom 04/13 00:00 :00 06/28/2018 00:00:00 Cefuroxim e rash, blood shot eyes, SOA, 02/02 00:00 :00 06/28/2018 00:00:00 Cefuroxim e rash, blood shot eyes, SOA, 01/06 00:00 :00 06/28/2018 00:00:00 Cefuroxim e rash, blood shot eyes, SOA, 12/08 00:00 :00 06/28/2018 00:00:00 Cefuroxim e rash, blood shot eyes, SOA, 04/23 00:00 :00 06/28/2018 00:00:00 Cefuroxim e rash, blood shot eyes, SOA,
--- OUTSIDE RECORDS SUMMARY | 2025-05-19 14:26 | XMS_ITS | Clinical Summary ---
Author Organization Healthcare Address [address] [place] [address] Care Team Providers Care Senior Talent Management Consultant Name Role Phone Unavailable Primary Care Provider [...] 2011 UKY-Zoster Vaccines (1 of 2) 2011 QSS-[id number]-63 Vaccine (1 - 2023- season) 2024 UKY-Influenza Vaccine (#1) 2025 [facility]Y-DTaP,Tdap,and Td Vaccine s (3 - [...] patient's age to complete this topic Insurance [facility] [place] [address]
--- NOTE | 2025-05-19 14:33 | ECG_ITS ---
APPROVED REPORT Exam: Resting ECG HR:89 bpm ECG Measurements Heart Rate 89 AXES DE 143 P 56 QRSd 89 QRS 50 QT 357 T 48 QTc 403 Conclusion SINUS RHYTHM WITH OCCASIONAL SUPRAVENTRICULAR PREMATURE COMPLEXES IN A BIGEMINAL PATTERN POSSIBLE RIGHT VENTRICULAR CONDUCTION DELAY [RSR (QR) IN V1/V2] MODERATE ST DEPRESSION [0.05+ mV ST DEPRESSION] ABNORMAL ECG UNCONFIRMED REPORT Electronically signed by : Francisco Navarro MD 05/20/2025 07:40:44
[2025-05-19 15:03] LABS: Hematocrit 38.5 % (42.0-52.0); Hemoglobin 13.4 g/dL (14.1-18.0); Immature Granulocytes % 0.9 %; Mean Corpuscular HGB Conc 34.8 g/dL (31.8-35.4); Mean Corpuscular Hemoglobin 32.3 pg (27.0-31.2); Mean Corpuscular Volume 92.8 fl (80-94); Nucleated Red Blood Cells % 0 %; Platelet Count 210 K/mm3 (142-424); Red Blood Count 4.15 M/mm3 (4.60-6.20); Red Cell Distribution Width-SD 43.8 fL; White Blood Count 8.7 K/mm3 (4.8-10.8)
[2025-05-19 15:10] LABS: Albumin Level 3.8 g/dl (3.5-5.0); Chloride 106 mmol/L (98-107); Potassium 4.0 mmoL/L (3.5-5.1); Sodium 137 mmol/L (136-145)
[2025-05-19 15:12] LABS: Blood Urea Nitrogen 11 mg/dl (9-20)
[2025-05-19 15:13] LABS: Alanine Aminotransferase 29 U/L (12-78); Albumin/Globulin Ratio 1.5 (1.1-1.8); Alkaline Phosphatase 61 U/L (38-126); Anion Gap 8.0 mEq/L (5-15); Aspartate Amino Transferase 27 U/L (17-59); Bilirubin,Total 0.4 mg/dl (0.2-1.3); Calcium 8.7 mg/dl (8.4-10.2); Carbon Dioxide 27 mmol/L (22.0-30.0); Creatine Kinase 44 U/L (55-170); Creatinine,Serum 0.90 mg/dl (0.66-1.25); Estimated Glomerular Filt Rate 85 ml/min (>60); GFR (African American) 103 ML/MIN (>60); Globulin 2.6 g/dL (1.3-3.2); Glucose 100 mg/dl (74-100); Total Protein,Serum 6.4 g/dl (6.3-8.2)
[2025-05-19 15:23] LABS: CKMB Relative Index 3.9 U/L (0-4.0)
[2025-05-19 15:38] LABS: Troponin I < 0.01 ng/ml (0.00-0.034)
[2025-05-19 15:44] LABS: Thyroid Stimulating Hormone 0.58 uIU/mL (0.465-4.68)
[2025-05-19 17:47] LABS: Vitamin B12 199 pg/mL (239-931)
== END 2025-05-19 23:59 | disposition home or self-care (01) ==
LOC: RT 14:23
PROVIDERS: PCP Family Medicine; Visit Provider Physician Assistant
DX: I49.1 Atrial premature depolarization (principal); R94.31 Abnormal electrocardiogram [ECG] [EKG]
CPT/HCPCS: 36415; 80053; 82550; 82553; 82607; 84443; 84484; 85025; 93005

== ENCOUNTER 2025-07-18 15:29 | Outpatient (CLI) | payer BC, MEDICARE, SELFPAY ==
--- OUTSIDE RECORDS SUMMARY | 2025-05-20 09:00 | XMS_ITS ---
Author Organization [facility] Address [address] [place] [id number] Care Team Providers Care Shuttle Driver Name Role Phone Alexandra Nettles Primary Care Provider Phoenix Mayer Unavailable [phone] Eileen Knox Unavailable [phone] REASON FOR VISIT B12 shot only Medications Medication SIG (Take, Route, Frequency, Duration) Notes Start Date End Date Status Triamcinolone Acetonide 0.1 % 1 application Externally Three times a day 03/25/2024 Active Colchicine 0.6 mg TAKE ONE TABLET BY MOUTH EVERY DAY NEEDED; Duration: 90 Active Sildenafil Citrate 50 MG 1 tablet as needed Orally Once a day; Duration: 30 day(s) Active B-12 1000 MCG 1 tab(s) orally once a day 06/24/2019 Active Vascepa 1 GM 2 capsules with meals Orally Twice a day; Duration: 90 days 04/24/2023 Active Crestor 20 MG 1 tablet Orally Once a day; Duration: 90 days Active Albuterol Sulfate HFA 108 (90 Base) MCG/ACT 1-2 puff(s) inhaled every 6 hours, prn 02/27/2023 Active Allopurinol 300 MG 1 tablet Orally Once a day; Duration: 30 day(s) Active EPI PEN 0.3 MG, 1:1000 DIRECTED SUBCUTANEOUS *Please review for potential replacement for e-prescription and drug interaction check* 07/01/2018 Active Indomethacin 50 MG 1 cap(s) orally 3 times a day as needed Active Isosorbide Mononitrate 30 MG 1 tablet in the morning Orally Once a day Active Metoprolol Succinate ER 25 MG 1 tablet Orally Once a day Active Ranolazine ER 500 MG 1 tablet Orally Twice a day Active Prasugrel HCl 10 MG as directed Orally Active Aspirin 81 81 MG 1 tablet Orally Once a day Active Stiolto Respimat 2.5-2.5 MCG/ACT INHALE 2 PUFFS BY MOUTH ONCE DAILY, SHAKE WELL BEFORE USE; Duration: 30 days Active Albuterol Sulfate HFA 108 (90 Base) MCG/ACT 1 puff as needed Inhalation every 4 hrs, prn 12/08/2024 Active Venlafaxine HCl ER 75 MG 1 cap(s) orally once a day; Duration: 90 days Active Encounters Encounter Location Date Provider Diagnosis [facility] [address] [facility] [address] [place] [id number] 05/20/2025 Eileen Knox B12 deficiency E53.8 Assessments Encounter Date Diagnosis (ICD Code) Assessment Notes Treatment Notes Treatment Clinical Notes Section Notes 05/20/2025 B12 deficiency (ICD-10 - E53.8) Plan Of Treatment No Information Medications Administered Medication Instructions Date of Administration Dosage Notes B-12 05/20/2025 1 mL Progress Notes * Foster MENDIOLADOB:04/1960 (65 yo M)Acc No.[id number]:05/20/2025 Patient: Foster CARROLL Provider: SHANE Diaz :1960 A ge:65 Y S ex:Male Date:05/20/2025 Address:[address] [place] [address] [id number] Pcp:Alexandra Nettles Subjective: * Chief Complaints: * 1 . B12 shot only. * Medical History: * Medications: T aking Stiolto Respimat 2.5-2.5 MCG/ACT Aerosol Solution INHALE 2 PUFFS BY MOUTH ONCE DAILY, SHAKE WELL BEFORE USE , Taking Metoprolol Succinate ER 25 MG Tablet Extended Release 24 Hour 1 tablet Orally Once a day , Taking Ranolazine ER 500 MG Tablet Extended Release 12 Hour 1 tablet Orally Twice a day , Taking Prasugrel HCl 10 MG Tablet as directed Orally , Taking Aspirin 81 81 MG Tablet Chewable 1 tablet Orally Once a day , Taking Isosorbide Mononitrate 30 MG Tablet Extended Release 24 Hour 1 tablet in the morning Orally Once a day , Taking Allopurinol 300 MG Tablet 1 tablet Orally Once a day , Taking EPI PEN 0.3 MG, 1:1000 DIRECTED SUBCUTANEOUS , Notes to Pharmacist: *Please review for potential replacement for e-prescription and drug interaction check*, Taking Indomethacin 50 MG Capsule 1 cap(s) orally 3 times a day as needed , Taking Crestor 20 MG Tablet 1 tablet Orally Once a day , Taking Albuterol Sulfate HFA 108 (90 Base) MCG/ACT Aerosol Solution 1-2 puff(s) inhaled every 6 hours, prn , Taking B-12 1000 MCG Tablet 1 tab(s) orally once a day , Taking Vascepa 1 GM Capsule 2 capsules with meals Orally Twice a day , Taking Triamcinolone Acetonide 0.1 % Cream 1 application Externally Three times a day , Taking Colchicine 0.6 mg Tablet TAKE ONE TABLET BY MOUTH EVERY DAY NEEDED , Taking Sildenafil Citrate 50 MG Tablet 1 tablet as needed Orally Once a day , Taking Albuterol Sulfate HFA 108 (90 Base) MCG/ACT Aerosol Solution 1 puff as needed Inhalation every 4 hrs, prn , Taking Venlafaxine HCl ER 75 MG Capsule Extended Release 24 Hour 1 cap(s) orally once a day , Medication List reviewed and reconciled with the patient Objective: * Vitals: Assessment: * Assessment: 1. B 12 deficiency - E53.8 (Primary) Plan: * Treatment: * Therapeutic Injections: B-12 : 1 mL (Route: Intramuscular) given by PARI Munroe on left gluteus (B12 deficiency) * Procedure Codes: J 3420 B-12, 74718 ADMINISTRATION OF INJECTION * Images: Billing Information: * Visit Code: * Procedure Codes: J3420 B-12. 80841 ADMINISTRATION OF INJECTION. * Electronic signature of SHANE Chowdhury on 07/18/2025 at 03:37 PM EDT Sign off status: Pending * Provider: SHANE Diaz Date: 0 05/20/2025 Generated for Lulú donahue/Jaime/José Manuel on: 1 03:37 PM EDT
--- OUTSIDE RECORDS SUMMARY | 2025-05-27 06:25 | XMS_ITS ---
Author Organization [facility] Address [address] [facility] [address] [place] [id number] Care Team Providers Care Veneer Sheet Repairer Name Role Phone Alexandra Nettles Primary Care Provider [phone] Phoenix Mayer Unavailable [phone] Allergies Allergen (clinical drug ingredient) Drug/Non Drug Allergy documented on EMR Reaction Allergy Type Onset Date Status cefuroxime Cefuroxime rash, blood shot eyes, SOA, Drug Allergy 06/28/2018 Active REASON FOR VISIT B 12 shot Medications Medication SIG (Take, Route, Frequency, Duration) Notes Start Date End Date Status Vascepa 1 GM 2 capsules with meals Orally Twice a day; Duration: 90 days 04/24/2023 Active Triamcinolone Acetonide 0.1 % 1 application Externally Three times a day 03/25/2024 Active Albuterol Sulfate HFA 108 (90 Base) MCG/ACT 1-2 puff(s) inhaled every 6 hours, prn 02/27/2023 Active B-12 1000 MCG 1 tab(s) orally once a day 06/24/2019 Active Crestor 20 MG 1 tablet Orally Once a day; Duration: 90 days Active Aspirin 81 81 MG 1 tablet Orally Once a day Active Indomethacin 50 MG 1 cap(s) orally 3 times a day as needed Active EPI PEN 0.3 MG, 1:1000 DIRECTED SUBCUTANEOUS *Please review for potential replacement for e-prescription and drug interaction check* 07/01/2018 Active Isosorbide Mononitrate 30 MG 1 tablet in the morning Orally Once a day Active Allopurinol 300 MG 1 tablet Orally Once a day; Duration: 30 day(s) Active Prasugrel HCl 10 MG as directed Orally Active Metoprolol Succinate ER 25 MG 1 tablet Orally Once a day Active Ranolazine ER 500 MG 1 tablet Orally Twice a day Active Stiolto Respimat 2.5-2.5 MCG/ACT INHALE 2 PUFFS BY MOUTH ONCE DAILY, SHAKE WELL BEFORE USE; Duration: 30 days Active Venlafaxine HCl ER 75 MG 1 cap(s) orally once a day; Duration: 90 days Active Colchicine 0.6 mg TAKE ONE TABLET BY MOUTH EVERY DAY NEEDED; Duration: 90 Active Sildenafil Citrate 50 MG 1 tablet as needed Orally Once a day; Duration: 30 day(s) Active Albuterol Sulfate HFA 108 (90 Base) MCG/ACT 1 puff as needed Inhalation every 4 hrs, prn 12/08/2024 Active Encounters Encounter Location Date Provider Diagnosis [facility] [address] [place] [id number] 05/27/2025 Alexandra Nettles Vitamin B12 deficien cy E53.8 Assessments Encounter Date Diagnosis (ICD Code) Assessment Notes Treatment Notes Treatment Clinical Notes Section Notes 05/27/2025 Vitamin B12 deficiency (ICD-10 - E53.8) Plan Of Treatment No Information Medications Administered Medication Instructions Date of Administration Dosage Notes B-12 05/27/2025 1 mL Progress Notes * Foster MENDIOLADOB:04/1960 (65 yo M)Acc No.[id number]:05/27/2025 Patient: Foster CARROLL Provider: Alexandra Nettles M.D. :1960 A ge:65 Y S ex:Male Date:05/27/2025 Address:[address] [place] [address] [id number] Subjective: * Chief Complaints: * 1 . B 12 shot. * Medical History: G out, Disbabled from closed head injury - 1991, Migraine headache. * Medications: T aking Stiolto Respimat 2.5-2.5 [...] List reviewed and reconciled with the patient * Allergies: C efuroxime: rash, blood shot eyes, SOA, - Onset Date 06/28/2018. Objective: * Vitals: Assessment: * Assessment: 1. V itamin B12 deficiency - E53.8 (Primary) Plan: * Treatment: * Therapeutic Injections: B-12 : 1 mL (Route: Intramuscular) given by GREGORY Jaimes on left gluteus (Vitamin B12 deficiency) * Procedure Codes: J 3420 B-12, 95812 ADMINISTRATION OF INJECTION * Images: Billing Information: * Visit Code: * Procedure Codes: J3420 B-12. 31334 ADMINISTRATION OF INJECTION. * Electronic signature of Alexandra Nettles MD on 07/18/2025 at 03:37 PM EDT Sign off status: Pending * Provider: Alexandra Nettles M.D. Date: 0 05/27/2025 Generated for Lulú donahue/Jaime/José Manuel on: 1 03:37 PM EDT
--- OUTSIDE RECORDS SUMMARY | 2025-06-10 07:40 | XMS_ITS ---
[facility] Address [address] [facility] [address] [place] [id number] Care Team Providers Care Pharmaceutical Analyst Name Role Phone Alexandra Nettles Primary Care Provider Phoenix Mayer Unavailable [phone] Eileen Knox Unavailable [phone] Allergies Allergen (clinical drug ingredient) Drug/Non Drug Allergy documented on EMR Reaction Allergy Type Onset Date Status cefuroxime Cefuroxime rash, blood shot eyes, SOA, Drug Allergy 06/28/2018 Active REASON FOR VISIT B12 Medications Medication SIG (Take, Route, Frequency, Duration) Notes Start Date End Date Status Albuterol Sulfate HFA 108 (90 Base) MCG/ACT 1 puff as needed Inhalation every 4 hrs, prn 12/08/2024 Active Venlafaxine HCl ER 75 MG 1 cap(s) orally once a day; Duration: 90 days Active Triamcinolone Acetonide 0.1 % 1 application Externally Three times a day 03/25/2024 Active Colchicine 0.6 mg TAKE ONE TABLET BY MOUTH EVERY DAY NEEDED; Duration: 90 Active Sildenafil Citrate 50 MG 1 tablet as needed Orally Once a day; Duration: 30 day(s) Active Vascepa 1 GM 2 capsules with meals Orally Twice a day; Duration: 90 days 04/24/2023 Active Indomethacin 50 MG 1 cap(s) orally 3 times a day as needed Active Crestor 20 MG 1 tablet Orally Once a day; Duration: 90 days Active Albuterol Sulfate HFA 108 (90 Base) MCG/ACT 1-2 puff(s) inhaled every 6 hours, prn 02/27/2023 Active B-12 1000 MCG 1 tab(s) orally once a day 06/24/2019 Active Isosorbide Mononitrate 30 MG 1 tablet in the morning Orally Once a day Active Allopurinol 300 MG 1 tablet Orally Once a day; Duration: 30 day(s) Active EPI PEN 0.3 MG, 1:1000 DIRECTED SUBCUTANEOUS *Please review for potential replacement for e-prescription and drug interaction check* 07/01/2018 Active Prasugrel HCl 10 MG as directed Orally Active Aspirin 81 81 MG 1 tablet Orally Once a day Active Metoprolol Succinate ER 25 MG 1 tablet Orally Once a day Active Ranolazine ER 500 MG 1 tablet Orally Twice a day Active Stiolto Respimat 2.5-2.5 MCG/ACT INHALE 2 PUFFS BY MOUTH ONCE DAILY, SHAKE WELL BEFORE USE; Duration: 30 days Active Encounters Encounter Location Date Provider Diagnosis [facility] [address] [place] [id number] 06/10/2025 Eileen Knox Vitamin B12 deficien cy E53.8 Assessments Encounter Date Diagnosis (ICD Code) Assessment Notes Treatment Notes Treatment Clinical Notes Section Notes 06/10/2025 Vitamin B12 deficiency (ICD-10 - E53.8) Plan Of Treatment No Information Medications Administered Medication Instructions Date of Administration Dosage Notes B-12 06/10/2025 1 mL Progress Notes * DAY Foster CoronaDOB:04/1960 (65 yo M)Acc No.[id number]:06/10/2025 Patient: Foster CARROLL Provider: SHANE Diaz :1960 A ge:65 Y S ex:Male Date:06/10/2025 Address:[address] [place] [address] [place] [id number] Pcp:Alexandra Nettles Subjective: * Chief Complaints: * 1 . B12. * ROS: D ERMATOLOGY: no R lizy. n o H twyla. G ASTROENTEROLOGY: no N ausea. n o V omiting. n o D iarrhea.? U ROLOGY: no D ifficulty urinating. n o B lood in urine. * Medical History: G out, Disbabled from closed head injury - 1991, Migraine headache. * Medications: T breana Stiolto Respimat 2.5-2.5 MCG/ACT Aerosol Solution INHALE [...] deficiency) * Procedure Codes: J 3420 B-12, 31582 ADMINISTRATION OF INJECTION * Images: Billing Information: * Visit Code: * Procedure Codes: J3420 B-12. 79216 ADMINISTRATION OF INJECTION. * Electronic signature of SHANE Chowdhury on 07/18/2025 at 03:37 PM EDT Sign off status: Pending * Provider: SHANE Diaz Date: 0 06/10/2025 Generated for Lulú donahue/Jaime/eTransmitting on: 1 03:37 PM EDT
--- OUTSIDE RECORDS SUMMARY | 2025-06-24 07:15 | XMS_ITS ---
Author Organization [facility] Address [address] [place] [id number] Care Team Providers Care Supervisor Scrap Preparation Name Role Phone Alexandra Nettles Primary Care Provider Phoenix Mayer Unavailable [phone] Eileen Knox Unavailable [phone] Allergies Allergen (clinical drug ingredient) Drug/Non Drug Allergy documented on EMR Reaction Allergy Type Onset Date Status cefuroxime Cefuroxime rash, blood shot eyes, SOA, Drug Allergy 06/28/2018 Active REASON FOR VISIT blood in ear Medications Medication SIG (Take, Route, Frequency, Duration) Notes Start Date End Date Status Triamcinolone Acetonide 0.1 % 1 application Externally Three times a day 03/25/2024 Active Colchicine 0.6 mg TAKE ONE TABLET BY MOUTH EVERY DAY NEEDED; Duration: 90 Active Venlafaxine HCl ER 75 MG 1 cap(s) orally once a day; Duration: 90 days Active Sildenafil Citrate 50 MG 1 tablet as needed Orally Once a day; Duration: 30 day(s) Active Albuterol Sulfate HFA 108 (90 Base) MCG/ACT 1 puff as needed Inhalation every 4 hrs, prn 12/08/2024 Active Albuterol Sulfate HFA 108 (90 Base) MCG/ACT 1-2 puff(s) inhaled every 6 hours, prn 02/27/2023 Active B-12 1000 MCG 1 tab(s) orally once a day 06/24/2019 Active Indomethacin 50 MG 1 cap(s) orally 3 times a day as needed Active Crestor 20 MG 1 tablet Orally Once a day; Duration: 90 days Active Vascepa 1 GM 2 capsules with meals Orally Twice a day; Duration: 90 days 04/24/2023 Active Prasugrel HCl 10 MG as directed Orally Active Allopurinol 300 MG 1 tablet Orally Once a day; Duration: 30 day(s) Active EPI PEN 0.3 MG, 1:1000 DIRECTED SUBCUTANEOUS *Please review for potential replacement for e-prescription and drug interaction check* 07/01/2018 Active Aspirin 81 81 MG 1 tablet Orally Once a day Active Isosorbide Mononitrate 30 MG 1 tablet in the morning Orally Once a day Active Stiolto Respimat 2.5-2.5 MCG/ACT INHALE 2 PUFFS BY MOUTH ONCE DAILY, SHAKE WELL BEFORE USE; Duration: 30 days Active Metoprolol Succinate ER 25 MG 1 tablet Orally Once a day Active Ranolazine ER 500 MG 1 tablet Orally Twice a day Active Vital Signs Weight 253 lbs 06/24/2025 Blood pressure systolic 122 mm Hg 06/24/20 25 Blood pressure diastolic 82 mm Hg 025 Heart Rate 94 /min 06/24/2025 Height 73.25 in 06/24/2025 BMI 33.15 kg/m2 06/24/2025 Encounters Encounter Location Date Provider Diagnosis [facility] [address] [facility] [address] [place], [place] [id number] 06/24/2025 Eileen Lisette Abrasion of left ear canal, initial encounter S00.412A and Vitamin B12 deficiency E53.8 Assessments Encounter Date Diagnosis (ICD Code) Assessment Notes Treatment Notes Treatment Clinical Notes Section Notes 06/24/2025 Abrasion of left ear canal, initial encounter (ICD-10 - S00.412A) Will refrain from putting anything in the ear so as not to knock of the scab. Can clean with water and peroxide in a few days. 06/24/2025 Vitamin B12 deficiency (ICD-10 - E53.8) Plan Of Treatment Treatment Notes Assessment Notes Abrasion of left ear canal, initial encounter Will refrain from putting anything in th e ear so as not to knock of the scab. Can clean with water and peroxide in a few days. Next Appt Details Follow Up: prn, Reason: Medications Administered Medication Instructions Date of Administration Dosage Notes B-12 06/24/2025 1 mL Progress Notes * Foster MENDIOLA:04/1960 (65 yo M)Acc No.[id number]:06/24/2025 Progress Notes Patient: Foster CARROLL Provider: SHANE Daiz :1960 A ge:65 Y S ex:Male Date:06/24/2025 Address:[address] [place] [address] [place], [id number] Pcp:Alexandra Nettles Subjective: * Chief Complaints: * 1 . Blood in ear. * HPI: E NT/respiratory: 65 year old male presents with c/o ear pain P t is here today with c/o having blood in the lt ear for 2 days now. Pt denies any pain and sts everything seems muffled and just a lot of blood. * ROS: D ERMATOLOGY: no R lizy. n o H twyla. G ASTROENTEROLOGY: no N ausea. n o V omiting. n o D iarrhea.? U ROLOGY: no D ifficulty urinating. n o B lood in urine. * Medical History: G out, Disbabled from closed head injury - 1991, Migraine headache. * Surgical History: L T Knee Arthroscopy , RT Knee- Dr Deleon 07/2016, Esophageal Dilation 2017, Epidemitis - Dr. Lopez 06/2019, 2 cardiac stents 03/2025. * Hospitalization/Major Diagno stic Procedure: M igraine- ER in [place] 12/2012, Allergic Reaction to Gravy- [facility] ER 04/2015, Allergic Reaction- [facility] ER 08/2015. * Family History: F ather: , unknown. M other: alive, diabetic. 1 sister(s) . 2 son(s) . . Sister has Diabetes. Maternal grandparents with heart disease. * Social History: C URRENT TOBACCO USE S moking Status: Patient does smoke, packs per day: 1, number of cigarettes per day: 20, Since age of: 16, Smoking preference: cigarettes. C affeine: yes, frequency:. Marital Status: . Past smoking status: no, quit January 03/2011, 25 pack year history. * Medications: T aking Stiolto Respimat 2.5-2.5 [...] - Onset Date 06/28/2018. Objective: * Vitals: W t: 253, Temp: 98.2, BP: 122/82, HR: 94, O2 Sat: 97% on RA, Nurse: gregory, Ht: 73.25, BMI:33.15. * Examination: G eneral Examination: General Appearance: N AD. H EENT: l eft TM normal, left canal with dried blood in the canal and a scab near the canal opening that looks as if it has been bleeding, no active bleeding. C hest: n ormal shape and expansion. H eart: R SR. Lungs: c lear to auscultation. Assessment: * Assessment: 1. A brasion of left ear canal, initial encounter - S00.412A (Primary) 2 . V itamin B12 deficiency - E53.8 Plan: * Treatment: * Therapeutic Injections: B-12 : 1 mL (Route: Intramuscular) given by GREGORY Jaimes on left gluteus (Vitamin B12 deficiency) * Procedure Codes: J 3420 B-12, 17959 ADMINISTRATION OF INJECTION, 3074F SYST BP LT 130 MM HG, 3079F DIAST BP 80-89 MM HG * Follow Up: p rn * Images: Billing Information: * Visit Code: 28196 Office Visit, Est Pt., Level 3. Modifiers: 25 * Procedure Codes: J3420 B-12. 21333 ADMINISTRATION OF INJECTION. 3074F SYST BP LT 130 MM HG. 3079F DIAST BP 80-89 MM HG. * Electronic signature of SHANE Chowdhury on 07/18/2025 at 03:37 PM EDT Sign off status: Pending * Provider: SHANE Diaz Date: 0 06/24/2025 Generated for Lulú donahue/Jaime/eTransmitting on: 1 03:37 PM EDT History and Physical Notes * HPI (History of Present Illness) Category Sub-Category Detail Notes Category Not es ENT/respiratory ear pain Pt is here today with c/o having blood in the lt ear for 2 days now. Pt denies any pain and sts everything seems muffled and just a lot of blood Examination Category Sub-Category Detail Notes Category Not es General Examination HEENT: left TM norm al, left canal with dried blood in the canal and a scab near the canal opening that looks as if it has been bleeding, no active bleeding Heart: RSR Lungs: clear to auscultatio n General Appearance: NAD Chest: normal shape and exp ansion
--- OUTSIDE RECORDS SUMMARY | 2025-07-15 07:30 | XMS_ITS ---
Author Organization [facility] Address [address] [place] [id number] Care Team Providers Care Microsoft Office Instructor Name Role Phone Alexandra Nettles Primary Care Provider Phoenix Mayer Unavailable [phone] Eileen Knox Unavailable [phone] Allergies Allergen (clinical drug ingredient) Drug/Non Drug Allergy documented on EMR Reaction Allergy Type Onset Date Status cefuroxime Cefuroxime rash, blood shot eyes, SOA, Drug Allergy 06/28/2018 Active Reason For Referral Diagnosis 1 Olecranon bursitis o f left elbow (M70.22) [facility] Referring Provider First Name Eileen Referring Provider Last Name Lisette Referring Provider Speciality Physician Waste Water Worker Referred Provider Specialty Orthopedic S urgery General Notes Eileen Knox 07/2025 12:03:02 PM >Pt needs a referral to Marlene Westbrook Brynn 07/15/2025 04:14:48 PM > 06/19/2025 at 09:30am; patient informed Referral Priority Routine REASON FOR VISIT referral for surgeon Medications Medication SIG (Take, Route, Frequency, Duration) [...] MOUTH EVERY DAY NEEDED; Duration: 90 Active EPI PEN 0.3 MG, 1:1000 DIRECTED SUBCUTANEOUS *Please review for potential replacement for e-prescription and drug interaction check* 07/01/2018 Active Indomethacin 50 MG 1 cap(s) orally 3 times a day as needed Active Crestor 20 MG 1 tablet Orally Once a day; Duration: 90 days Active Isosorbide Mononitrate 30 MG 1 tablet in the morning Orally Once a day Active Allopurinol 300 MG 1 tablet Orally Once a day; Duration: 30 day(s) Active Metoprolol Succinate ER 25 MG 1 tablet Orally Once a day Active Ranolazine ER 500 MG 1 tablet Orally Twice a day Active Venlafaxine HCl ER 75 MG 1 cap(s) orally once a day; Duration: 90 days Active Prasugrel HCl 10 MG as directed Orally Active Aspirin 81 81 MG 1 tablet Orally Once a day Active dexAMETHasone 4 MG 1 tablet Orally twice a day; Duration: 5 days 07/15/2025 Active Sildenafil Citrate 50 MG 1 tablet as needed Orally Once a day; Duration: 30 day(s) Active Albuterol Sulfate HFA 108 (90 Base) MCG/ACT 1 puff as needed Inhalation every 4 hrs, prn 12/08/2024 Active Stiolto Respimat 2.5-2.5 MCG/ACT INHALE 2 PUFFS DAILY. SHAKE BEFORE USE; Duration: 30 Active Vital Signs Weight 256.8 lbs 07/15/2025 Blood pressure systolic 130 mm Hg 07/15/20 25 Blood pressure diastolic 70 mm Hg 025 Heart Rate 71 /min 07/15/2025 Height 73.25 in 07/15/2025 BMI 33.65 kg/m2 07/15/2025 Encounters Encounter Location Date Provider Diagnosis [facility] [address] [place], [place] [id number] 07/15/2025 Eileen Knox Olecranon bursitis o f left elbow M70.22 Assessments Encounter Date Diagnosis (ICD Code) Assessment Notes Treatment Notes Treatment Clinical Notes Section Notes 07/15/2025 Olecranon bursitis of left elbow (ICD-10 - M70.22) Dr. Mayer examined as well. This cannot be drained. Will refer to ortho for injection vs removal of the bursa. Plan Of Treatment Medication Medication Name Sig Start Date Stop Date Notes dexAMETHasone 4 MG 1 tablet Orally twic e a day; Duration: 5 days 07/15/2025 Treatment Notes Assessment Notes Olecranon bursitis of left elbow Dr. Nicolás cheung examined as well. This cannot be drained. Will refer to ortho for injection vs removal of the bursa. Referrals Referral Date Details 07/15/2025 07/15/2025 Next Appt Details Follow Up: with Rosa lockhart n: Progress Notes * Foster MENDIOLADOB:04/1960 (65 yo M)Acc No.[id number]:07/15/2025 Progress Notes Patient: Foster CARROLL Provider: SHANE Diaz :1960 A ge:65 Y S ex:Male Date:07/15/2025 Address:[address] [place] [address] [id number] Pcp:Alexandra Nettles Subjective: * Chief Complaints: * 1 . Referral for surgeon. * HPI: H PI: 65 year old male presents with c/o Patient is here today for?Pt is here today for a referral to a surgeon for swelling along the olecranon bursa. It has been ongoing for years. . * ROS: D ERMATOLOGY: no R lizy. [...] Diagno stic Procedure: M igraine- ER in [place] 12/2012, Allergic Reaction to Gravy- [facility] ER 04/2015, Allergic Reaction- [facility] ER 08/2015. * Family History: F ather: [...] pack year history. * Medications: T aking Metoprolol Succinate ER 25 MG Tablet Extended [...] Inhalation every 4 hrs, prn , Taking Stiolto Respimat 2.5-2.5 MCG/ACT Aerosol Solution INHALE 2 PUFFS DAILY. SHAKE BEFORE USE , Taking Venlafaxine HCl ER 75 MG Capsule Extended Release 24 Hour 1 cap(s) orally once a day , Medication List reviewed and reconciled with the patient * Allergies: C efuroxime: rash, blood shot eyes, SOA, - Onset Date 06/28/2018. Objective: * Vitals: W t: 256.8, Temp: 98.6, BP: 130/70, HR: 71, O2 Sat: 98% on RA, Nurse: misa, Ht: 73.25, BMI:33.65. * Examination: G eneral Examination: General Appearance: N AD. C hest: n ormal shape and expansion. H eart: R SR. L ungs: c lear to auscultation. E xtremities: t here is swelling of the olecranon bursa on the left but there are firm nodules in the bursa rather than fluid, no erythema, it is painful to palpate. Assessment: * Assessment: 1. O lecranon bursitis of left elbow - M70.22 (Primary) Plan: * Treatment: * Follow Up: w ith ortho * Images: Billing Information: * Visit Code: 15513 Office Visit, Est Pt., Level 3. * Procedure Codes: * Electronic signature of SHANE Chowdhury on 07/18/2025 at 03:37 PM EDT Sign off status: Pending * Provider: SHANE Diaz Date: Generated for Lulú donahue/Jaime/eTransmitting on: 03:37 PM EDT History and Physical Notes * HPI (History of Present Illness) Category Sub-Category Detail Notes Category Not es HPI Patient is here today for Pt is here today for a referral to a surgeon for swelling along the olecranon bursa. It has been ongoing for years. Examination Category Sub-Category Detail Notes Category Not es General Examination Heart: RSR Lungs: clear to auscultatio n Extremities: there is swelling of the olecranon bursa on the left but there are firm nodules in the bursa rather than fluid, no erythema, it is painful to palpate General Appearance: NAD Chest: normal shape and exp ansion Consultation Request Notes Referral Date Referring Provider Referred Provider Not es 07/15/2025 Eileen Knox ,
--- NOTE | 2025-07-18 15:35 | XR_ITS ---
FINAL REPORT CLINICAL HISTORY: left elbow pain..NO TRAUMA FINDINGS: AP, oblique, and lateral views of the left elbow were obtained. There is no prior exam for comparison. There is no acute fracture or dislocation. There is mild degenerative joint disease. Dorsal soft tissue edema is seen. Olecranon bursitis not excluded. IMPRESSION: No acute osseous abnormality of the left elbow. Dorsal soft tissue edema. Olecranon bursitis not excluded. Reviewed, Interpreted and Dictated by Nell Ackerman MD Transcribed by Trinh Landrum Authenticated and [facility]
--- OUTSIDE RECORDS SUMMARY | 2025-07-18 15:37 | XMS_ITS | Patient Health Record ---
Author Organization [facility] Address [address] [place] [id number] Care Team Providers Care Technology Training Associate Name Role Phone Alexandra Nettles Primary Care Provider Phoenix Mayer Unavailable [phone] Eileen Knox Unavailable [phone] Allergies Allergen (clinical drug ingredient) Drug/Non Drug Allergy documented on EMR Reaction Allergy Type Onset Date Status cefuroxime Cefuroxime rash, blood shot eyes, SOA, Drug Allergy 06/28/2018 Active Results Component Value Reference Range Notes Influenza Screen (in house) Reviewed date:05/20/2025 05:03:27 PM Interpretation: Performing Lab: Notes/Report: results neg CBC Fingerstick (in house) Reviewed date:05/20/2025 05:03:27 PM Interpretation: Performing Lab: Notes/Report: wbc 9.4 3.5 - 10 lym 23.9 15 - 50 mid 6.1 2 - 15 gran 70.0 35 - 80 rbc 4.45 3.5 - 5.5 hgb 14.6 11.5 - 16.5 hct 42.4 35 - 55 mcv 95.4 75 - 100 mch 32.8 25 - 35 mchc 34.4 31 - 38 plat 215 100 - 400 CBC Fingerstick (in house) Reviewed date:05/20/2025 05:03:27 PM Interpretation: Performing Lab: Notes/Report: wbc 9.4 3.5 - 10 lym 23.9 15 - 50 mid 6.1 2 - 15 gran 70.0 35 - 80 rbc 4.45 3.5 - 5.5 hgb 14.6 11.5 - 16.5 hct 42.4 35 - 55 mcv 95.4 75 - 100 mch 32.8 25 - 35 mchc 34.4 31 - 38 plat 215 100 - 400 H-TSH Reviewed date:05/20/2025 05:03:27 PM Interpretation: Performing Lab: Notes/Report: TSH 0.58 0.465-4.68 uIU/mL H-CBC Reviewed date:05/20/2025 05:03:27 PM Interpretation: Performing Lab: Notes/Report: WBC 8.7 4.8-10.8 K/mm3 RBC 4.15 4.60-6.20 M/mm3 HGB 13.4 14.1-18.0 g/dL HCT 38.5 42.0-52.0 % MCV 92.8 80-94 fl MCH 32.3 27.0-31.2 pg MCHC 34.8 31.8-35.4 g/dL RDW-SD 43.8 RDW 13.0 11.5-17.5 % PLT 210 142-424 K/mm3 MPV 10.5 7.4-10.4 fl NE% 63.2 37.0-80.0 % LY% 23.7 10-50 % MO% 8.0 1.7-9.3 % EO% 3.3 0.1-12.0 % BA% 0.9 0.1-2.0 % NRBC% 0 IG% 0.9 NE# 5.5 1.8-7.8 K/mm3 LY# 2.1 0.7-4.5 K/mm3 MO# 0.7 0.1-1.0 K/mm3 EO# 0.3 0.0-0.4 Kmm3 BA# 0.1 0-0.2 K/mm3 NRBC# 0 IG# 0.08 H-CMP Reviewed date:05/20/2025 05:03:27 PM Interpretation: Performing Lab: Notes/Report: NA 137 136-145 mmol/L K 4.0 3.5-5.1 mmoL/L CL 106 98-107 mmol/L CO2 27 22.0-30.0 mmol/L GAP 8.0 5-15 mEq/L BUN 11 9-20 mg/dl CREATT 0.90 0.66-1.25 mg/dl GFRAA 103 >60 ML/MIN EGFR 85 >60 ml/min GLU 100 74-100 mg/dl CA 8.7 8.4-10.2 mg/dl BILIT 0.4 0.2-1.3 mg/dl AST 27 17-59 U/L ALT 29 12-78 U/L TP 6.4 6.3-8.2 g/dl ALB 3.8 3.5-5.0 g/dl GLOB 2.6 1.3-3.2 g/dL AGRATIO 1.5 1.1-1.8 ALP 61 38-126 U/L H-VITAMIN B12 Reviewed date:05/20/2025 05:03:27 PM Interpretation: Performing Lab: Notes/Report: VITB12 199 239-931 pg/mL H-Cardiac Enzymes Reviewed date:05/20/2025 05:03:27 PM Interpretation: Performing Lab: Notes/Report: CK 44 55-170 U/L CKMB 1.7 0.0-2.03 ng/ml CKMB INDEX 3.9 0-4.0 U/L TROP < 0.01 0.00-0.034 ng/ml <0.012-0.034 ng/mL NORMAL 0.035 - >0.120 ng/mL ELEVATED* *Serial testing recommended. A rise and fall with peak greater than 0.6 ng/mL may indicate acute myocardial infarction, but is not independently diagnostic. Clinical correlation is necessary. *ALERT* High levels of Biotin can falsely depress Troponin results. Many dietary supplements promoted for hair, skin, and nail benefits contain biotin levels up to 650 times the recommended daily intake of biotin. In addition to dietary supplements, Biotin is occasionally prescribed for medical conditions. Covid test (in house) Reviewed date:05/20/2025 05:03:27 PM Interpretation: Performing Lab: Notes/Report: Result: neg EKG with rhythm strip Reviewed date:05/20/2025 12:27:28 PM Interpretation: Performing Lab: Notes/Report: EKG with rhythm strip Reviewed date:05/20/2025 12:27:28 PM Interpretation: Performing Lab: Notes/Report: P-PSA Reviewed date:04/22/2025 01:25:59 PM Interpretation:Normal Performing Lab: Notes/Report: Test performed by [employer], [employer] [address] [place] [address] , [address], [place] [address] Joseph Martin MD, [employer] CLIA: [id number] PSA 2.49 <4.00 ng/mL Please note this [...] tab(s) orally once a day 06/24/2019 Active Metoprolol Succinate ER 25 MG 1 tablet Orally Once a day Active Vascepa 1 GM 2 capsules with meals Orally Twice a day; Duration: 90 days 04/24/2023 Active dexAMETHasone 4 MG 1 tablet Orally twice a day; Duration: 5 days 07/15/2025 Active Ranolazine ER 500 MG 1 tablet Orally Twice a day Active Triamcinolone Acetonide 0.1 % 1 application Externally Three times a day 03/25/2024 Active EPI PEN 0.3 MG, 1:1000 DIRECTED SUBCUTANEOUS *Please review for potential replacement for e-prescription and drug interaction check* 07/01/2018 Active Venlafaxine HCl ER 75 MG 1 cap(s) orally once a day; Duration: 90 days Active Indomethacin 50 MG 1 cap(s) orally 3 times a day as needed Active Crestor 20 MG 1 tablet Orally Once a day; Duration: 90 days Active Prasugrel HCl 10 MG as directed Orally Active Colchicine 0.6 mg TAKE ONE TABLET BY MOUTH EVERY DAY NEEDED; Duration: 90 Active Aspirin 81 81 MG 1 tablet Orally Once a day Active Sildenafil Citrate 50 MG 1 tablet as needed Orally Once a day; Duration: 30 day(s) Active Isosorbide Mononitrate 30 MG 1 tablet in the morning Orally Once a day Active Albuterol Sulfate HFA 108 (90 Base) MCG/ACT 1 puff as needed Inhalation every 4 hrs, prn 12/08/2024 Active Allopurinol 300 MG 1 tablet Orally Once a day; Duration: 30 day(s) Active Stiolto Respimat 2.5-2.5 MCG/ACT INHALE 2 PUFFS DAILY. SHAKE BEFORE USE; Duration: 30 Active Immunizations Vaccine Route Administration Date Status [...] Status W/U Status Risk Notes Problem Arthritis (5098859) Arthritis (M19.90) Active confirmed Problem Seasonal allergic rhinitis (042166326) Other seasonal allergic rhinitis (J30.2) Active confirmed Problem Mixed hyperlipidemia (491017605) Mixed hyperlipidemia (E78.2) Active confirmed Problem Reactive depression (situational) (70832593) Situational depression (F43.21) Active confirmed Problem COPD - Chronic obstructive pulmonary disease (05371549) Chronic obstructive pulmonary disease, unspecified COPD type (J44.9) Active confirmed Problem Ex-tobacco user (finding) (146774652) History of tobacco abuse (Z87.891) Active confirmed Problem Erectile dysfunction (disorder) (351107246) Erectile dysfunction, unspecified erectile dysfunction type (N52.9) Active confirmed Problem Insomnia (599956974) Insomnia, unspecified type (G47.00) Active confirmed Problem Dyslipidemia (435943585) Dyslipidemia (E78.5) Active confirmed Problem Postconcussion syndrome (55875521) Post concussion syndrome (F07.81) Active confirmed Problem History of placement of stent for coronary artery disease (situation) (028226461) History of coronary artery stent placement (Z95.5) Active confirmed Problem Gout (58850472) Acute gout of right wrist, unspecified cause (M10.9) Active confirmed Problem Loss of vision of left eye (699589829) Vision loss, left eye (H54.62) Active confirmed Problem Neuropathy of both feet (G57.93) Active confirmed Vital Signs Heart Rate 71 /min 07/15/2025 Blood pressure diastolic 70 mm Hg 07/15/2025 Height 73.25 in 07/15/2025 Blood pressure systolic 130 mm Hg 07/15/2025 Weight 256.8 lbs 07/15/2025 BMI 33.65 kg/m2 07/15/2025 Encounters Encounter Location Date Provider [facility] [place] [address] [place] [id number] 12/08/2024 Eileen Crowdy Injury of nail bed o f toe S99.929A and Bronchitis J40 [facility] [place] [address] [place] [id number] 04/20/2025 Eileen Crowdy Chronic obstructive pulmonary disease, unspecified COPD type J44.9 ; History of coronary artery stent placement Z95.5 ; Mixed hyperlipidemia E78.2 ; Other seasonal allergic rhinitis J30.2 ; Situational depression F43.21 and Screening PSA (prostate specific antigen) Z12.5 [facility] [place] [address] [place] [id number] 05/19/2025 Eileen Dudleydy Vertigo R42 ; Chest pain, unspecified type R07.9 and Body aches R52 [facility] [place] [address] [place] [id number] 05/20/2025 Eileen Crowdy B12 deficiency E53.8 [facility] [place] [address] [place] [id number] 05/27/2025 R Rupert Nettles Vitamin B12 deficien cy E53.8 [facility] [place] [address] [place] [id number] 06/10/2025 Eileen Crowdy Vitamin B12 deficien cy E53.8 [facility] [place] [address] [place] [id number] 06/24/2025 Eileen Crowdy Abrasion of left ear canal, initial encounter S00.412A and Vitamin B12 deficiency E53.8 [facility] [address] [place], [place] [id number] 07/15/2025 Eileen Knox Olecranon bursitis o f left elbow M70.22 [facility] [address] [place], [place] [id number] 01/06/2025 R Rupert Yoon Situational depressi on F43.21 [facility] [address] [place], [place] [id number] 02/02/2025 R Rupert Yoon [facility] [address] [place], [place] [id number] 04/13/2025 R Rupert Yoon Bronchitis J40 [facility] [address] [place] [id number] 05/09/2025 R Rupert Yoon [facility] [address] [facility] [address] [place] [id number] 05/20/2025 Eileen Knox [facility] [address] [facility] [address] [place], [place] [id number] 05/20/2025 Eileen Knox Assessments Encounter Date Diagnosis (ICD Code) Assessment Notes Treatment Notes Treatment Clinical Notes Section Notes 12/08/2024 Bronchitis (ICD-10 - J40) 12/08/2024 Injury of nail bed of toe (ICD-10 - S99.929A) Will start on abx and keep toe clean and covered. If it gets worse or starts draining will need to call. 01/06/2025 Situational depression (ICD-10 - F43.21) 05/19/2025 Vertigo (ICD-10 - R42) Patient has meclizine at home he will start taking. Gave handout for Steven's maneuver. 05/19/2025 Chest pain, unspecified type (ICD-10 - R07.9) Patient has had some episodes of CP and feels like his BP drops. He has not spoken with cardiology about this yet but he will call. Will get an EKG and enzymes today. 05/20/2025 B12 deficiency (ICD-10 - E53.8) 05/27/2025 Vitamin B12 deficiency (ICD-10 - E53.8) 06/10/2025 Vitamin B12 deficiency (ICD-10 - E53.8) 06/24/2025 Vitamin B12 deficiency (ICD-10 - E53.8) 06/24/2025 Abrasion of left ear canal, initial encounter (ICD-10 - S00.412A) Will refrain from putting anything in the ear so as not to knock of the scab. Can clean with water and peroxide in a few days. 07/15/2025 Olecranon bursitis of left elbow (ICD-10 - M70.22) Dr. Mayer examined as well. This cannot be drained. Will refer to ortho for injection vs removal of the bursa. 04/20/2025 Chronic obstructive pulmonary disease, unspecified COPD type (ICD-10 - J44.9) 04/20/2025 History of coronary artery stent placement (ICD-10 - Z95.5) See patient docs for recent labs and chest CT. 04/13/2025 Bronchitis (ICD-10 - J40) 04/20/2025 Mixed hyperlipidemia (ICD-10 - E78.2) 05/19/2025 Body aches (ICD-10 - R52) 04/20/2025 Other seasonal allergic rhinitis (ICD-10 - J30.2) 04/20/2025 Situational depression (ICD-10 - F43.21) 04/20/2025 Screening PSA (prostate specific antigen) (ICD-10 - Z12.5) Plan Of Treatment Pending Test Test Name Order Date P-PSA 11/20/2022 Insurance Providers Payer Name Payer Address Payer Phone Subscriber Number Group Number Insured Name Patient Relationship to Insured Coverage Start Date Coverage End Date [employer] [address] [place] [address] [id number] Foster Mendiola Self - patient is the insured MEDICARE PART B [address] [address] [place] [id number] Foster Mendiola Self - patient is the [...] 04/09/2024 1 mL B-12 04/23/2024 1 mL B-12 05/20/2025 1 mL B-12 05/27/2025 1 mL B-12 06/10/2025 1 mL B-12 06/24/2025 1 mL Depo- Medrol 40 mg/ml 05/29/2011 [...] cardiac stents 03/2025 Hospitalization History Reason Date(Month/Year) Allergic Reaction- [facility] 08/2015 Allergic Reaction to Gravy- [facility] ER 04/24 15 Migraine- ER in [place] 12/2012
--- OUTSIDE RECORDS SUMMARY | 2025-07-18 15:38 | XMS_ITS | Clinical Summary ---
Author Organization [facility] Address [address] [place] [address] Care Team Providers Care Ore Grader Name Role Phone Unavailable Primary Care Provider [...] e 07/16/2023 Family and Community Support Answer Keegna e Recorded Help with Day-to-Day Activities Not [...] 2011 ZOSTER VACCINE (1 of 2) 2011 INFLUENZA VACCINE 05/06/2025
--- OUTSIDE RECORDS SUMMARY | 2025-07-18 15:38 | XMS_ITS | Clinical Summary ---
Author Organization [facility] Address [address] [place] [address] Care Team Providers Care Massage Therapist Name Role Phone Unavailable Primary Care Provider [...] 2011 [facility]-Zoster Vaccines (1 of 2) 2011 DLD-GNYGM-50 Vaccine (1 - 2023- season) 2025 [facility]-Influenza Vaccine (#1) 2025 [facility]-DTaP,Tdap,and Td Vaccine [...] patient's age to complete this topic Insurance [facility] [place] [phone]
== END 2025-07-18 23:59 | disposition home or self-care (01) ==
PROVIDERS: PCP Family Medicine; Visit Provider Physician Assistant
DX: M25.522 Pain in left elbow (principal); M79.89 Other specified soft tissue disorders
CPT/HCPCS: 73080